=== PATIENT | male | born 1975 | race Hispanic/Latino ===

== ENCOUNTER 2024-04-22 20:35 | Emergency (ER) | payer MEDICARE, OTHER, SELFPAY ==
[2024-04-22] VITALS (10 sets, daily range): BP systolic 102–127; BP diastolic 62–95
--- NOTE | 2024-04-22 21:09 | ED.GENMED ---
History of Present Illness
<Hortencia Faye NP - Last Filed: 04/23/24 00:58>
General
Chief Complaint: Heart Rate Problem
Source: patient
Exam Limitations: none
Time Seen by Provider: 04/22/24 21:02
Nursing documentation reviewed up to this point in time: agreed with
History of Present Illness
History of Present Illness:
Patient to ED with complaint of rapid heart beat. States he noticed this sudden onset at around 2:30PM today. He has been monitoring it with his apple watch. Brought self to ED for eval. Denies fever/chills, recent illness. Denies any SOB,
cp/pressure. No dizziness
Past History
<Hortencia Faye NP - Last Filed: 04/23/24 00:58>
Past History
ED Past Medical History: HTN and Psychiatric (anxiety)
Social History
Tobacco: Vaping
Alcohol: Occasional
Drug: None
Review of Systems
<Hortencia Faye NP - Last Filed: 04/23/24 00:58>
Review of Systems
Allergies reviewed?: Yes
All Other Systems: ROS reviewed and negative except as documented in HPI and ROS
Constitutional: Reports no symptoms
EENT: Reports no symptoms
Respiratory: Reports no symptoms
Cardiac: Reports other (Rapid heart beat.)
ABD/GI: Reports no symptoms
: Reports no symptoms
Musculoskeletal: Reports no symptoms
Skin: Reports no symptoms
Neurological: Reports no symptoms
Psychiatric: Reports no symptoms
Phy Exam
<Hortencia Faye NP - Last Filed: 04/23/24 00:58>
General Physical Exam
General Presentation: well appearing and no apparent distress
General age: appears stated age
General Skin: warm and dry
General Habitus: normal
General Mental: alert
Cardiovascular Exam
Cardiovascular Exam: no edema and irregularly irregular
Pulmonary Exam
Pulmonary Exam: lungs clear and no respiratory distress
Musculoskeletal Exam
Musculoskeletal Exam: full ROM and neuro vasc intact
Skin Exam
Skin Exam: normal color, warm/dry and no rash
Psychiatric Exam
Psychiatric Exam: normal mood/affect
Scores
<Hortencia Faye NP - Last Filed: 04/23/24 00:58>
[id number] Score for Afib Stroke Risk
Age in Years (65=0, 65-74=1, >/=75=2): <65
Sex (Female=+1): Male
Congestive Heart Failure History (Yes=+1): No
Hypertension History (Yes=+1): Yes
Stroke/TIA/Thromboembolism History (Yes=+2): No
Vascular Disease History (Yes=+1): No
Diabetes Mellitus (Yes=+1): No
Score: 1
Anticoagulation Recommendations: Consider anticoagulation (as validated in nonvalvular fib)
<Luis Miles MD - Last Filed: 04/23/24 00:30>
[id number] Score for Afib Stroke Risk
Score: 1
Anticoagulation Recommendations: Consider anticoagulation (as validated in nonvalvular fib)
Course
<Hortencia Faye NP - Last Filed: 04/23/24 00:58>
Orders/Labs/Results
Orders:
Orders
04/22/24 20:36
Electrocardiogram (*1) Urgent
Reason for Study: Chest Pain
EKG- Treatment ONCE
04/22/24 21:10
Diltiazem HCl [Cardizem] 20 mg IV NOW STA
04/22/24 21:12
0.9% Sodium Chloride 1000 ml [Nss] 1,000 ml IV BOLUS
04/22/24 21:15
Complete Blood Count/With Diff Urgent
Comprehensive Metabolic Panel Urgent
D-Dimer Urgent
Magnesium Urgent
TSH Urgent
Troponin I Urgent
Diltiazem 125 mg/125 ml Nss [Cardizem] 125 mg in 125 ml IV PER PROTOCOL
Currently infusing. Continue current dose and titrate:: Yes
Titrate to keep:: Heart rate 80-100 bpm
Titrate by mg/hr:: 5 mg/hr
Frequency of titrations (minutes):: 15
Maximum dose in mg/hr:: 15
04/22/24 22:31
Metoprolol Xl [Toprol Xl] 25 mg PO NOW STA
04/22/24 23:51
Apixaban [Eliquis] 10 mg PO NOW STA
04/22/24 23:54
Apixaban [Eliquis] 5 mg PO NOW STA
Abnormal Lab Results
04/22/24
21:15
Absolute Lymphs (auto) 3.8 H 10^3/uL
(1.2-3.4)
Absolute Monos (auto) 0.8 H 10^3/uL
(0.1-0.6)
04/22/24 21:15
04/22/24 21:15
Vital Signs
Initial and Last Documented VS:
Initial Vital Signs
Temp Pulse Resp BP Pulse Ox
98.2 F 132 18 127/95 99
04/22/24 20:37 04/22/24 20:37 04/22/24 20:37 04/22/24 20:37 04/22/24 20:37
Last Documented Vital Signs
Temp Pulse Resp BP Pulse Ox
98.2 F 76 13 102/86 94
04/22/24 20:37 04/23/24 00:00 04/23/24 00:00 04/23/24 00:00 04/23/24 00:00
<Luis Miles MD - Last Filed: 04/23/24 00:30>
Orders/Labs/Results
Orders:
Orders
04/22/24 20:36
Electrocardiogram (*1) Urgent
Reason for Study: Chest Pain
EKG- Treatment ONCE
04/22/24 21:10
Diltiazem HCl [Cardizem] 20 mg IV NOW STA
04/22/24 21:12
0.9% Sodium Chloride 1000 ml [Nss] 1,000 ml IV BOLUS
04/22/24 21:15
Complete Blood Count/With Diff Urgent
Comprehensive Metabolic Panel Urgent
D-Dimer Urgent
Magnesium Urgent
TSH Urgent
Troponin I Urgent
Diltiazem 125 mg/125 ml Nss [Cardizem] 125 mg in 125 ml IV PER PROTOCOL
Currently infusing. Continue current dose and titrate:: Yes
Titrate to keep:: Heart rate 80-100 bpm
Titrate by mg/hr:: 5 mg/hr
Frequency of titrations (minutes):: 15
Maximum dose in mg/hr:: 15
04/22/24 22:31
Metoprolol Xl [Toprol Xl] 25 mg PO NOW STA
04/22/24 23:51
Apixaban [Eliquis] 10 mg PO NOW STA
04/22/24 23:54
Apixaban [Eliquis] 5 mg PO NOW STA
Abnormal Lab Results
04/22/24
21:15
Absolute Lymphs (auto) 3.8 H 10^3/uL
(1.2-3.4)
Absolute Monos (auto) 0.8 H 10^3/uL
(0.1-0.6)
04/22/24 21:15
04/22/24 21:15
Vital Signs
Initial and Last Documented VS:
Initial Vital Signs
Temp Pulse Resp BP Pulse Ox
98.2 F 132 18 127/95 99
04/22/24 20:37 04/22/24 20:37 04/22/24 20:37 04/22/24 20:37 04/22/24 20:37
Last Documented Vital Signs
Temp Pulse Resp BP Pulse Ox
98.2 F 76 13 102/86 94
04/22/24 20:37 04/23/24 00:00 04/23/24 00:00 04/23/24 00:00 04/23/24 00:00
<Hortencia Faye NP - Last Filed: 04/23/24 00:58>
*Critical Care Note
Total Time (30-74mins, 75-104mins- exclusive of procedures): Not Applicable
<Hortencia Faye NP - Last Filed: 04/23/24 00:58>
Update Note
Update Note:
Patient to ED wtih new onset Afib. Rate 140's on arrival to ED. Cardizem bolus and drip administered in ED. Rate now controlled (80's) however he remains in Afib. Discussed case wth Dr. Miles who also evaluated this patient. Dr. Waldrop consulted
via tiger text. Will place on Toprol XL 25mg daily, Eliquis 5mg bid, stop Lisinopril. He will follow up with cardiology next week. Office will contact him on Wednesday to schedule appt.
ED Attending Note
<Hortencia Faye NP - Last Filed: 04/23/24 00:58>
-
Portions of this chart may have been created with voice recognition software.� Occasional wrong word or��sound alike� substitutions may have occurred due to the inherent limitations of voice recognition software.
<Luis Miles MD - Last Filed: 04/23/24 00:30>
ED Attending Note
Patient seen and examined by attending physician: Yes
ED Attending Note:
Patient with history of hypertension on HCTZ and lisinopril, presents to ED secondary to sudden onset of palpitations this afternoon after eating 'something sweet'. When he checked his pulse on his rest, felt to be fast and irregular. On his Apple
Watch, his heart rate was noted to be greater than 150 bpm. However, patient denies chest pain, dizziness, shortness of breath, or nausea sensation. Denies previous history of similar symptoms. Denies recent illness. Denies recent change in
medications or diet. Denies recent travel or surgery. Denies leg pain or swelling. Denies back pain. Denies drinking alcohol. There is no family history of significant heart disease.
Physical Exam
General: no apparent distress, not acutely ill. afebrile
Head: nc/at. eomi
Neck: supple. no meningeal signs.
Heart: irregularly irregular, tachycardic, no murmur. equal radial pulses.
Lungs: no acute respiratory distress. clear bilaterally
Abdomen: normal bowel sounds. not tender.
Neuro: alert and oriented. no focal neurological deficits
Skin: no rash
Psychiatric: well kept. interactive and cooperative
Extremities: no edema. no calf tenderness.
History and exam consistent with likely new onset atrial fibrillation.
Heart rate improved significantly after treatment with IV fluids, Cardizem bolus and infusion.
Discussed with on-call cardiology, . Decision made to discharge patient home with following recommendation: Eliquis, Toprol XL. As Toprol will be added to his current medications, patient will be advised to discontinue lisinopril, to
prevent significant hypotension. Cardiology office will contact patient at home for urgent outpatient follow-up next week. Patient otherwise is hemodynamically stable and appears comfortable, at time of discharge.
Critical care statement: A total of 40 minutes of critical care time was provided for this patient. This includes management of unstable vital signs, evaluation of the patient at bedside, reviewing the patient's pertinent medical records, discussion
with consultants, review of old EKGs and review of pertinent medical records. This time with separate from time utilized to perform the aforementioned documented procedures
Discharge Plan
Departure
Patient Disposition: Home (Routine Discharge)
Date of Disposition: 04/22/24
Time of Disposition: 23:52
Patient with high blood pressure during this ER visit?: No
Condition: Good
Covid-19: Not Applicable
Discharge Problem:
New onset a-fib
Instructions: Atrial Fibrillation (DC), Apixaban
Prescriptions:
New
Eliquis 5 mg tablet
5 mg PO BID Qty: 60 0RF
metoprolol succinate [Toprol XL] 25 mg tablet extended release 24 hr
25 mg PO DAILY Qty: 30 0RF
Referrals:
Bryan Waldrop MD [Active] - (Cardiology office will contact you on Wednesday to schedule your appointment.)
Roz Herrera PA [Family Provider] -
Activity Restrictions/Additional Instructions:
Stop your Lisinopril. You will receive a call from the cardiology office on Wednesday to schedule your appointment. If you do not receive a call by Wednesday, call the cardiology office. Return to the emergency department immediately for any
CP/pressure, SOB, or for any further concerns.
Interventions
Interventions:
*Risk Screen - Suicide Last Done: 04/22/24 20:37
*General Assessment Last Done: 04/22/24 20:37
*Neglect/Abuse Screening Last Done: 04/22/24 20:37
ED- Fall Risk Assessment Last Done: 04/23/24 00:14
*ED COVID-19 Vaccine History Last Done: 04/23/24 00:14
*Nursing Disposition Last Done: 04/23/24 00:14
ED- Cardiac Assessment Last Done: 04/22/24 21:04
ED- Pulmonary Assessment Last Done: 04/22/24 21:34
Discharge Date and Time
Discharge Date/Time: 04/23/24 00:14
Print Language: CYPRIOT
--- NOTE | 2024-04-22 21:09 | ED.GENMED ---
History of Present Illness
General
Chief Complaint: Heart Rate Problem
Source: patient
Exam Limitations: none
Time Seen by Provider: 04/22/24 21:02
Nursing documentation reviewed up to this point in time: agreed with
History of Present Illness
History of Present Illness:
Patient with history of hypertension on HCTZ and lisinopril, presents to ED
Course
Orders/Labs/Results
Orders:
Orders
04/22/24 20:36
Electrocardiogram (*1) Urgent
Reason for Study: Chest Pain
EKG- Treatment ONCE
04/22/24 21:10
Diltiazem HCl [Cardizem] 20 mg IV NOW STA
04/22/24 21:12
0.9% Sodium Chloride 1000 ml [Nss] 1,000 ml IV BOLUS
04/22/24 21:15
Complete Blood Count/With Diff Urgent
Comprehensive Metabolic Panel Urgent
D-Dimer Urgent
Magnesium Urgent
TSH Urgent
Troponin I Urgent
Diltiazem 125 mg/125 ml Nss [Cardizem] 125 mg in 125 ml IV PER PROTOCOL
Currently infusing. Continue current dose and titrate:: Yes
Titrate to keep:: Heart rate 80-100 bpm
Titrate by mg/hr:: 5 mg/hr
Frequency of titrations (minutes):: 15
Maximum dose in mg/hr:: 15
04/22/24 22:31
Metoprolol Xl [Toprol Xl] 25 mg PO NOW STA
04/22/24 23:51
Apixaban [Eliquis] 10 mg PO NOW STA
Abnormal Lab Results
04/22/24
21:15
Absolute Lymphs (auto) 3.8 H 10^3/uL
(1.2-3.4)
Absolute Monos (auto) 0.8 H 10^3/uL
(0.1-0.6)
04/22/24 21:15
04/22/24 21:15
Vital Signs
Initial and Last Documented VS:
Initial Vital Signs
Temp Pulse Resp BP Pulse Ox
98.2 F 132 18 127/95 99
04/22/24 20:37 04/22/24 20:37 04/22/24 20:37 04/22/24 20:37 04/22/24 20:37
Last Documented Vital Signs
Temp Pulse Resp BP Pulse Ox
98.2 F 83 15 114/75 96
04/22/24 20:37 04/22/24 23:45 04/22/24 23:45 04/22/24 23:45 04/22/24 23:45
ED Attending Note
-
Portions of this chart may have been created with voice recognition software.� Occasional wrong word or��sound alike� substitutions may have occurred due to the inherent limitations of voice recognition software.
Discharge Plan
Departure
Patient Disposition: Home (Routine Discharge)
Date of Disposition: 04/22/24
Time of Disposition: 23:52
Patient with high blood pressure during this ER visit?: No
Condition: Good
Covid-19: Not Applicable
Discharge Problem:
New onset a-fib
Instructions: Atrial Fibrillation (DC)
Referrals:
Roz Herrera PA [Family Provider] -
Interventions
Interventions:
*Risk Screen - Suicide Last Done: 04/22/24 20:37
*General Assessment Last Done: 04/22/24 20:37
*Neglect/Abuse Screening Last Done: 04/22/24 20:37
ED- Cardiac Assessment Last Done: 04/22/24 21:04
ED- Pulmonary Assessment Last Done: 04/22/24 21:34
Discharge Date and Time
Print Language: IRANIAN
[2024-04-22 21:26] LABS: % Basophils 0.8 % (0-2); % Eosinophils 2.4 % (0-6); % Immature Granulocytes 0.3 % (0-0.5); % Lymphocytes 39.9 % (20.5-51.1); % Monocytes 8.7 % (1.7-9.3); % Neutrophils 47.9 % (42.2-75.2); Absolute Basophils 0.1 10^3/uL (0-0.2); Absolute Eosinophils 0.2 10^3/uL (0-0.7); Absolute Lymphocytes 3.8 10^3/uL (1.2-3.4); Absolute Monocytes 0.8 10^3/uL (0.1-0.6); Absolute Neutrophils 4.6 10^3/uL (1.4-6.5); Mean Corp Hgb Conc. 36.6 g/dL (33.0-37.0); Mean Corpuscular Hgb 29.6 pg (27.0-31.0); Mean Corpuscular Volume 80.9 fL (80.0-94.0); Nucleated Red Blood Cells % 0 % (-); Platelet Count 204 10^3/uL (130-400); Red Blood Cell Count 5.07 10^6/uL (4.70-6.10); Red Cell Dist. Width 13.3 % (11.5-14.5); White Blood Cell Count 9.5 10^3/uL (4.8-10.8)
[2024-04-22] MEDS: NSS 1000 IV (21:26)
[2024-04-22] MEDS: CARDIZEM 20 MG IV (21:52)
[2024-04-22 21:53] LABS: Troponin I < 0.012 ng/ml
[2024-04-22] MEDS: CARDIZEM 125 IV (21:57)
[2024-04-22 22:00] LABS: ALT (SGPT) 22 U/L (0-50); AST (SGOT) 28 U/L (17-59); Albumin 4.3 g/dl (3.5-5.0); Alkaline Phosphatase 80 U/L (38-126); Blood Urea Nitrogen 20 mg/dl (9-20); Calcium 9.4 mg/dl (8.4-10.2); Carbon Dioxide 27 mmol/L (22-30); Chloride 101 mmol/L (98-107); Glucose 92 mg/dl (70-99); Magnesium 1.8 mg/dl (1.6-2.3); Potassium 3.9 mmol/L (3.5-5.1); Sodium 138 mmol/L (135-145); Total Bilirubin 0.8 mg/dl (0.2-1.3); Total Protein 7.2 g/dl (6.3-8.2); eGFR > 60.00
[2024-04-22] MEDS: TOPROL XL 25 MG PO (22:38)
[2024-04-23] VITALS: BP 102/86
[2024-04-23] MEDS: ELIQUIS 5 MG PO
== END 2024-04-23 00:14 | disposition home or self-care (01) ==
LOC: EMR 20:35
PROVIDERS: Emergency Medicine; Nurse Practitioner; EMERGENCY PHYSICIAN Emergency Medicine; FAMILY PHYSICIAN Family Medicine
DX: I48.91 Unspecified atrial fibrillation (principal); R00.0 Tachycardia, unspecified; R07.9 Chest pain, unspecified; I10 Essential (primary) hypertension; F17.290 Nicotine dependence, other tobacco product, uncomplicated
CPT/HCPCS: 99291; 96365; 80053; 83735; 84443; 84484; 85025; 85379; 93005

== ENCOUNTER 2024-05-18 22:44 | Emergency (ER) | payer MEDICARE, SELFPAY ==
[2024-05-18 22:47] VITALS: BP 163/97
--- NOTE | 2024-05-18 23:30 | ED.GENMED ---
History of Present Illness
<LAUREN Mcneill - Last Filed: 05/19/24 01:59>
General
Chief Complaint: Heart Rate Problem
Source: patient
Time Seen by Provider: 05/18/24 23:13
History of Present Illness
History of Present Illness:
Pt is a 48 y/o male with PMHx of newly diagnosed a-fib, HTN, and anxiety presenting with lightheadedness and racing heart that started 1.5 hours ago. He states he was driving and started experiencing lightheadedness and he felt his heart rate and it
was racing. He states he checked his apple watch and his HR was 143. He states he was also experiencing some nausea and shortness of breath. He states he also began experiencing a headache on the crown of his head and in his temples. He states it
was a 10/10 and he took Tylenol which slightly alleviated his symptoms. He states he also noticed left hand paraesthesias that lasted around 5 minutes and resolved. He states he drove home and checked his BP and it was 160/130 so he came to the ED.
He states since arriving in the ED he feels better besides the headache which he now states is an 8/10. He denies any vision changes, LOC, confusion, chest pain, vomiting. He states he was diagnosed with a-fib 1 month ago.
Past History
<LAUREN Mcneill - Last Filed: 05/19/24 01:59>
Past History
ED Past Medical History: HTN and Psychiatric (anxiety)
Social History
Tobacco: Vaping
Alcohol: Occasional
Drug: None
Phy Exam
<LAUREN Mcneill - Last Filed: 05/19/24 01:59>
Physical Exam
Physical Exam:
GENERAL: Alert , comfortable, in no apparent distress
EYE: pupils equal and reactive
Throat: Airway intact, no exudates
NECK: Supple, no significant adenopathy.
CARDIAC: Regular rate and rhythm .
LUNGS: Clear breath sounds bilaterally, no acute respiratory distress, no wheezes/rales/rhonchi
ABDOMEN: Soft, nondistended, nontender, no cvat
NEUROLOGICAL: Alert and oriented x3, following commands, no focal neuro deficits. Strength and sensation intact in all upper and lower extremities.
SKIN: Warm and dry, skin intact.
MUSCULOSKELETAL: No edema, well perfused.
PSYCH: Normal and appropriate interaction.
Course
<Chalino Byers [facility] - Last Filed: 05/19/24 01:59>
Orders/Labs/Results
Orders:
Orders
05/18/24 22:48
EKG [Electrocardiogram (*1)] Urgent
Reason for Study: Atrial Fibrillation
EKG- Treatment ONCE
05/18/24 23:52
Complete Blood Count/With Diff Urgent
Comprehensive Metabolic Panel Urgent
Magnesium Urgent
PTT Urgent
Prothrombin Time Urgent
TSH Urgent
Troponin I Urgent
05/18/24 23:53
Electrocardiogram (*1) Stat
Reason for Study: Other
Other Reason for Exam: chest pain
EKG- Treatment ONCE
05/19/24 00:04
Orthostatic Vital Signs As Directed
Orthostatic VS Frequency: Now
05/19/24 00:05
Erythrocyte Sed Rate Urgent
Comment: ADDED
05/19/24 00:14
CT Head & Neck Angio W/wo IV Urgent
Comment:
Reason For Exam: worst HOBBS, left arm paresthesia
05/19/24 00:15
Add On- LAB Urgent
Tests Added?: sed rate
05/19/24 01:19
Diphenhydramine [Benadryl] 25 mg IV NOW STA
Metoclopramide [Reglan] 10 mg IV NOW STA
Abnormal Lab Results
05/19/24
00:05
Hct 38.7 L %
(39.0-52.0)
Neutrophils % 39.8 L %
(42.2-75.2)
PT 14.8 H Sec
(11.4-14.6)
APTT 37.4 H Sec
(23.4-35.0)
05/19/24 00:05
05/19/24 00:05
Vital Signs
Initial and Last Documented VS:
Initial Vital Signs
Temp Pulse Resp BP Pulse Ox
98.5 F 69 19 163/97 97
05/18/24 22:47 05/18/24 22:47 05/18/24 22:47 05/18/24 22:47 05/18/24 22:47
Last Documented Vital Signs
Temp Pulse Resp BP Pulse Ox
98.5 F 63 13 131/91 97
05/18/24 22:47 05/19/24 00:30 05/19/24 00:30 05/19/24 00:00 05/19/24 00:30
<Lauro Pittman, DO - Last Filed: 05/19/24 01:56>
Orders/Labs/Results
Orders:
Orders
05/18/24 22:48
EKG [Electrocardiogram (*1)] Urgent
Reason for Study: Atrial Fibrillation
EKG- Treatment ONCE
05/18/24 23:52
Complete Blood Count/With Diff Urgent
Comprehensive Metabolic Panel Urgent
Magnesium Urgent
PTT Urgent
Prothrombin Time Urgent
TSH Urgent
Troponin I Urgent
05/18/24 23:53
Electrocardiogram (*1) Stat
Reason for Study: Other
Other Reason for Exam: chest pain
EKG- Treatment ONCE
05/19/24 00:04
Orthostatic Vital Signs As Directed
Orthostatic VS Frequency: Now
05/19/24 00:05
Erythrocyte Sed Rate Urgent
Comment: ADDED
05/19/24 00:14
CT Head & Neck Angio W/wo IV Urgent
Comment:
Reason For Exam: worst HOBBS, left arm paresthesia
05/19/24 00:15
Add On- LAB Urgent
Tests Added?: sed rate
05/19/24 01:19
Diphenhydramine [Benadryl] 25 mg IV NOW STA
Metoclopramide [Reglan] 10 mg IV NOW STA
Abnormal Lab Results
05/19/24
00:05
Hct 38.7 L %
(39.0-52.0)
Neutrophils % 39.8 L %
(42.2-75.2)
PT 14.8 H Sec
(11.4-14.6)
APTT 37.4 H Sec
(23.4-35.0)
05/19/24 00:05
05/19/24 00:05
Vital Signs
Initial and Last Documented VS:
Initial Vital Signs
Temp Pulse Resp BP Pulse Ox
98.5 F 69 19 163/97 97
05/18/24 22:47 05/18/24 22:47 05/18/24 22:47 05/18/24 22:47 05/18/24 22:47
Last Documented Vital Signs
Temp Pulse Resp BP Pulse Ox
98.5 F 63 13 131/91 97
05/18/24 22:47 05/19/24 00:30 05/19/24 00:30 05/19/24 00:00 05/19/24 00:30
<LAUREN Mcneill - Last Filed: 05/19/24 01:59>
MDM/Problems Addressed
Differential Diagnosis Includes:
Differential diagnosis includes but is not limited to paroxysmal atrial fibrillation, SAH, anxiety, hyperthyroid, electrolyte abnormality
<LAUREN Mcneill - Last Filed: 05/19/24 01:59>
*Radiology
Radiology exam reviewed: radiology read reviewed
*Pulse Oximetry
Patient hypoxic: no
*EKG
Interpreted by ED Provider?: Yes
Interpretation: abnormal
Comparison EKG: changes noted (Sinus rhythm has replaced atrial fibrillation)
Heart Rate: 63
Rate: normal
Rhythm: sinus
[place]: normal axis
Interval: first degree heart block
QRS Pattern: normal QRS
Ischemia: no ischemia
*Interdisciplinary Professor Interpretation
Rate: Interdisciplinary Professor- N/A
*Critical Care Note
Total Time (30-74mins, 75-104mins- exclusive of procedures): Not Applicable
<LAUREN Mcneill - Last Filed: 05/19/24 01:59>
Update Note
Update Note:
CTA of head and neck showed no bleeds or occlusions making SAH less likely. Lab work shows no gross electrolyte abnormalities. Patient's headache is improved and vitals are stable. Patient's symptoms are consistent with paroxysmal a-fib. Patient to
follow up with cardiology outpatient.
ED Attending Note
<LAUREN Mcneill - Last Filed: 05/19/24 01:59>
-
Portions of this chart may have been created with voice recognition software.� Occasional wrong word or��sound alike� substitutions may have occurred due to the inherent limitations of voice recognition software.
<Lauro Pittman DO - Last Filed: 05/19/24 01:56>
ED Attending Note
Patient seen and examined by attending physician: Yes
I performed the substantive portion of visit, reviewed & personally made and approve the management plan that is documented in note by myself or ANDREW.: Yes
ED Attending Note:
Pleasant 48-year-old male presents with palpitations and headache. He states that he felt that his heart was racing approximately one and half hours prior to arrival. He did report having a very severe headache. He was driving at the time and he
felt lightheaded. He looked at his watch and determined that his heart rate was over 140. He thought he was in atrial fibrillation. He was recently diagnosed with atrial fibrillation and put on Eliquis. He states that he has not missed a dose.
Patient also reported left hand paresthesias which lasted approximately 5 minutes. Upon arrival at his home his blood pressure was elevated so he came into the emergency department for evaluation. Patient reports that his headache is improving.
Patient denies chest pain or shortness of breath. Patient was seen in conjunction with the PA student. I have reviewed and agree with the history and treatment plan presented. On my independent physical exam, patient is awake, alert, and oriented
x3, minimal acute distress resting comfortably on the bed. Heart is regular rate and rhythm. Lungs are clear to auscultation bilaterally no wheezes rales or rhonchi present. Pupils equal round reactive to light. Moves all 4 extremities. No neck
pain reported or nuchal rigidity observed. No obvious meningeal signs.
Given the patient has a severe headache, to get CTA of the head.
CT head
CT angiogram head and neck
IMPRESSION:
Head:
No acute intracranial hemorrhage, mass or mass-effect.
Skull intact. Bilateral maxillary antrectomy and partial ethmoidectomy. Scattered ethmoid and maxillary sinus mucosal thickening.
Angiogram head:
No major arterial vascular occlusion.
No focal aneurysm.
Venous sinuses are patent.
Angiogram neck:
No major arterial vascular occlusion.
No hemodynamically significant stenosis, dissection or aneurysm.
EKG shows sinus rhythm rate of 63 with prolonged HI interval at 240 ms consistent with first-degree AV block. No evidence of acute ischemia present.
Repeat EKG shows sinus bradycardia rate of 53 with increased HI interval of 260 ms. No other significant changes found from previous
05/19/2024 0154 AM: Patient feeling much better. He refused medications ordered. He will take Tylenol when he gets home. He wishes to be discharged. Discussed CT scan findings with the patient. I did discuss return to ER instructions. Patient
being discharged in improved condition.
Discharge Plan
Departure
Prescriptions:
No Action
Eliquis 5 mg tablet
5 mg PO BID Qty: 60 0RF
metoprolol succinate [Toprol XL] 25 mg tablet extended release 24 hr
25 mg PO DAILY Qty: 30 0RF
Referrals:
Roz Herrera PA [Family Provider] -
Interventions
Interventions:
*General Assessment Last Done: 05/19/24 00:38
*Neglect/Abuse Screening Last Done: 05/19/24 00:38
*ED COVID-19 Vaccine History Last Done: 05/18/24 22:46
ED- Cardiac Assessment Last Done: 05/19/24 00:38
ED- Pulmonary Assessment Last Done: 05/19/24 00:38
Discharge Date and Time
Print Language: JAPANESE
[2024-05-19] VITALS: BP 131/91
[2024-05-19 00:07] VITALS: BMI 29.5
[2024-05-19 00:26] LABS: APTT 37.4 Sec (23.4-35.0); INR 1.16; PT 14.8 Sec (11.4-14.6)
[2024-05-19 00:29] LABS: ALT (SGPT) 21 U/L (0-50); AST (SGOT) 25 U/L (17-59); Albumin 4.1 g/dl (3.5-5.0); Alkaline Phosphatase 65 U/L (38-126); Blood Urea Nitrogen 15 mg/dl (9-20); Calcium 9.6 mg/dl (8.4-10.2); Carbon Dioxide 27 mmol/L (22-30); Chloride 103 mmol/L (98-107); Estimated Creatinine Clearance 83 ml/min; Glucose 99 mg/dl (70-99); Magnesium 1.8 mg/dl (1.6-2.3); Potassium 4.1 mmol/L (3.5-5.1); Sodium 137 mmol/L (135-145); Total Bilirubin 0.6 mg/dl (0.2-1.3); Total Protein 6.9 g/dl (6.3-8.2); eGFR > 60.00
[2024-05-19 00:34] LABS: % Basophils 1.1 % (0-2); % Eosinophils 3.5 % (0-6); % Immature Granulocytes 0.4 % (0-0.5); % Lymphocytes 46.8 % (20.5-51.1); % Monocytes 8.4 % (1.7-9.3); % Neutrophils 39.8 % (42.2-75.2); Absolute Basophils 0.1 10^3/uL (0-0.2); Absolute Eosinophils 0.2 10^3/uL (0-0.7); Absolute Lymphocytes 2.6 10^3/uL (1.2-3.4); Absolute Monocytes 0.5 10^3/uL (0.1-0.6); Absolute Neutrophils 2.2 10^3/uL (1.4-6.5); Hematocrit 38.7 % (39.0-52.0); Mean Corp Hgb Conc. 36.2 g/dL (33.0-37.0); Mean Corpuscular Hgb 29.4 pg (27.0-31.0); Mean Corpuscular Volume 81.3 fL (80.0-94.0); Mean Platelet Volume 9.6 fL (7.4-10.4); Nucleated Red Blood Cells % 0 % (-); Platelet Count 194 10^3/uL (130-400); Red Blood Cell Count 4.76 10^6/uL (4.70-6.10); Red Cell Dist. Width 12.4 % (11.5-14.5); White Blood Cell Count 5.5 10^3/uL (4.8-10.8)
[2024-05-19 00:39] LABS: Erythrocyte Sed Rate 7 mm/hour (0-20)
[2024-05-19 00:41] LABS: Troponin I < 0.012 ng/ml
[2024-05-19 00:59] LABS: TSH 1.08 uIU/ml (0.47-4.68)
[2024-05-19 01:07] VITALS: BP 125/83
[2024-05-19 01:08] VITALS: BP 120/78
[2024-05-19 01:10] VITALS: BP 128/84
[2024-05-19 01:12] VITALS: BP 120/78; BP 125/83; BP 128/84; PULSE 52; PULSE 60
[2024-05-19 02:00] VITALS: BP 114/89
== END 2024-05-19 02:10 | disposition home or self-care (01) ==
LOC: EMR 22:44
PROVIDERS: EMERGENCY PHYSICIAN Student in an Organized Health Care Education/Training Program; FAMILY PHYSICIAN Family Medicine
DX: R00.2 Palpitations (principal); R42 Dizziness and giddiness; R51.9 Headache, unspecified; R06.02 Shortness of breath; R20.2 Paresthesia of skin; R11.0 Nausea; I48.91 Unspecified atrial fibrillation; Z79.01 Long term (current) use of anticoagulants; I10 Essential (primary) hypertension; F41.9 Anxiety disorder, unspecified
CPT/HCPCS: 99285; 70496; 70498; 80053; 83735; 84443; 84484; 85025; 85610; 85652; 85730; 93005; Q9967

== ENCOUNTER → 2024-05-25 15:39 | Outpatient (REF) | payer MEDICARE, SELFPAY | LOC: HWRCS 15:39 | PROVIDERS: ATTENDING PHYSICIAN Internal Medicine Cardiovascular Disease; FAMILY PHYSICIAN Family Medicine | DX: I48.0 Paroxysmal atrial fibrillation (principal) | CPT/HCPCS: 93306 ==

== ENCOUNTER → 2024-06-20 11:03 | Outpatient (REF) | payer MEDICARE, SELFPAY | LOC: HWRAD 11:03 | PROVIDERS: ATTENDING PHYSICIAN Internal Medicine Cardiovascular Disease; FAMILY PHYSICIAN Family Medicine | DX: E78.5 Hyperlipidemia, unspecified (principal) | CPT/HCPCS: 75571 ==

== ENCOUNTER → 2024-06-30 11:18 | Outpatient (REF) | payer MEDICARE, SELFPAY | LOC: HWRAD 11:18 | PROVIDERS: ATTENDING PHYSICIAN Family Medicine | DX: R19.00 Intra-abdominal and pelvic swelling, mass and lump, unspecified site (principal) | CPT/HCPCS: 74177; Q9967 ==

== ENCOUNTER 2024-07-01 17:29 | Emergency (ER) | payer MEDICARE, SELFPAY ==
[2024-07-01 17:31] VITALS: BP 136/94
[2024-07-01 18:00] LABS: % Basophils 0.7 % (0-2); % Eosinophils 2.8 % (0-6); % Immature Granulocytes 0.3 % (0-0.5); % Lymphocytes 25.3 % (20.5-51.1); % Monocytes 8.2 % (1.7-9.3); % Neutrophils 62.7 % (42.2-75.2); Absolute Basophils 0.1 10^3/uL (0-0.2); Absolute Eosinophils 0.3 10^3/uL (0-0.7); Absolute Lymphocytes 2.7 10^3/uL (1.2-3.4); Absolute Monocytes 0.9 10^3/uL (0.1-0.6); Absolute Neutrophils 6.6 10^3/uL (1.4-6.5); Hemoglobin 15.1 g/dL (13.0-18.0); Mean Corp Hgb Conc. 36.8 g/dL (33.0-37.0); Mean Corpuscular Hgb 28.9 pg (27.0-31.0); Mean Corpuscular Volume 78.5 fL (80.0-94.0); Mean Platelet Volume 9.8 fL (7.4-10.4); Nucleated Red Blood Cells % 0 % (-); Platelet Count 185 10^3/uL (130-400); Red Blood Cell Count 5.22 10^6/uL (4.70-6.10); Red Cell Dist. Width 12.2 % (11.5-14.5); White Blood Cell Count 10.5 10^3/uL (4.8-10.8)
[2024-07-01 18:15] LABS: ALT (SGPT) 36 U/L (0-50); AST (SGOT) 30 U/L (17-59); Albumin 4.5 g/dl (3.5-5.0); Alkaline Phosphatase 76 U/L (38-126); Blood Urea Nitrogen 15 mg/dl (9-20); Calcium 9.5 mg/dl (8.4-10.2); Carbon Dioxide 26 mmol/L (22-30); Chloride 102 mmol/L (98-107); Glucose 115 mg/dl (70-99); Potassium 4.4 mmol/L (3.5-5.1); Sodium 141 mmol/L (135-145); Total Bilirubin 0.6 mg/dl (0.2-1.3); Total Protein 7.4 g/dl (6.3-8.2); eGFR > 60.00
[2024-07-01 18:32] VITALS: BP 115/89; BMI 29.0
[2024-07-01 18:35] LABS: Troponin I < 0.012 ng/ml
--- NOTE | 2024-07-01 18:52 | ED.GENMED ---
History of Present Illness
General
Chief Complaint: Heart Rate Problem
Time Seen by Provider: 07/01/24 18:36
History of Present Illness
History of Present Illness:
49-year-old male presents to the emergency department for evaluation of acute onset of chest pain associated with palpitations beginning this afternoon. He has a history of paroxysmal A-fib and he is on Eliquis, states that his Apple Watch notified
him he was in A-fib. Upon arrival to emergency department symptoms resolved. Currently asymptomatic and denies complaints
Past History
Past History
ED Past Medical History: HTN and Psychiatric (anxiety)
Social History
Tobacco: Vaping
Alcohol: Occasional
Drug: None
Review of Systems
Review of Systems
Allergies reviewed?: Yes
All Other Systems: ROS reviewed and negative except as documented in HPI and ROS
Phy Exam
Physical Exam
Physical Exam:
GEN: Well appearing, NAD, WDWN
HEENT: Oral mucosa moist, no scleral icterus
Cardiac: Regular rate and rhythm, no murmurs
Lung: No respiratory distress, no tachypnea
MSK: No gross deformity or injuries
Skin: Good color, no pallor or jaundice, no rashes
Neuro: AO x3, moves all extremities freely
Psych: Calm, cooperative
Course
Orders/Labs/Results
Orders:
Orders
07/01/24 17:30
EKG [Electrocardiogram (*1)] Urgent
Reason for Study: Atrial Fibrillation
EKG- Treatment ONCE
07/01/24 17:31
Electrocardiogram (*1) Urgent
Reason for Study: Atrial Fibrillation
EKG- Treatment ONCE
07/01/24 17:41
Complete Blood Count/With Diff Urgent
Comprehensive Metabolic Panel Urgent
Troponin I Urgent
Abnormal Lab Results
07/01/24
17:41
MCV 78.5 L fL
(80.0-94.0)
Absolute Neuts (auto) 6.6 H 10^3/uL
(1.4-6.5)
Absolute Monos (auto) 0.9 H 10^3/uL
(0.1-0.6)
Glucose 115 H mg/dl
(70-99)
07/01/24 17:41
07/01/24 17:41
Vital Signs
Initial and Last Documented VS:
Initial Vital Signs
Temp Pulse Resp BP Pulse Ox
98.2 F 95 16 136/94 98
07/01/24 17:31 07/01/24 17:31 07/01/24 17:31 07/01/24 17:31 07/01/24 17:31
Last Documented Vital Signs
Temp Pulse Resp BP Pulse Ox
98.2 F 82 15 115/89 97
07/01/24 17:31 07/01/24 18:45 07/01/24 18:45 07/01/24 18:32 07/01/24 18:45
MDM/Problems Addressed
MDM/Problems Addressed:
Patient remained in normal sinus rhythm and asymptomatic in the emergency department. Labs are reassuring. Incidentally he request that I review an outpatient CT scan from yesterday that was done for evaluation of a abdominal mass that was found
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
*Critical Care Note
Total Time (30-74mins, 75-104mins- exclusive of procedures): Not Applicable
ED Attending Note
-
Portions of this chart may have been created with voice recognition software.� Occasional wrong word or��sound alike� substitutions may have occurred due to the inherent limitations of voice recognition software.
Discharge Plan
Departure
Patient Disposition: Home (Routine Discharge)
Date of Disposition: 07/01/24
Time of Disposition: 18:52
Patient with high blood pressure during this ER visit?: No
Discharge Problem:
Paroxysmal A-fib, Adrenal myelolipoma
Instructions: Atrial Fibrillation (DC)
Prescriptions:
No Action
Eliquis 5 mg tablet
5 mg PO BID Qty: 60 0RF
metoprolol succinate [Toprol XL] 25 mg tablet extended release 24 hr
25 mg PO DAILY Qty: 30 0RF
Referrals:
Roz Herrera PA [Family Provider] -
Activity Restrictions/Additional Instructions:
The mass on your adrenal gland is likely benign, however it is quite large at 8cm. Please discuss with your primary care physician; based on size it may be reasonable to re-image in 12 months, vs consult with a surgeon for excision
Interventions
Interventions:
*Risk Screen - Suicide Last Done: 07/01/24 18:33
*General Assessment Last Done: 07/01/24 17:31
*Neglect/Abuse Screening Last Done: 07/01/24 17:31
ED- Fall Risk Assessment Last Done: 07/01/24 18:33
*ED COVID-19 Vaccine History Last Done: 07/01/24 17:31
*Nursing Disposition Last Done: 07/01/24 19:24
ED- Cardiac Assessment Last Done: 07/01/24 18:33
ED- Pulmonary Assessment Last Done: 07/01/24 18:33
Discharge Date and Time
Discharge Date/Time: 07/01/24 19:25
Print Language: WOLOF
== END 2024-07-01 19:25 | disposition home or self-care (01) ==
LOC: EMR 17:29
PROVIDERS: Physician Assistant; EMERGENCY PHYSICIAN Student in an Organized Health Care Education/Training Program; FAMILY PHYSICIAN Family Medicine
DX: I48.0 Paroxysmal atrial fibrillation (principal); D17.79 Benign lipomatous neoplasm of other sites; F17.290 Nicotine dependence, other tobacco product, uncomplicated
CPT/HCPCS: 99284; 80053; 84484; 85025; 93005

== ENCOUNTER 2024-07-23 18:37 | Inpatient (IN) | payer MEDICARE, SELFPAY ==
[2024-07-23] VITALS (9 sets, daily range): BP systolic 122–184; BP diastolic 82–109; BMI 30.3; BMI 29.2
[2024-07-23] MEDS: MOTRIN 400 MG PO (12:25)
[2024-07-23] MEDS: NSS 500 IV (12:25)
[2024-07-23 12:41] LABS: % Basophils 0.4 % (0-2); % Eosinophils 0.3 % (0-6); % Immature Granulocytes 0.5 % (0-0.5); % Lymphocytes 10.4 % (20.5-51.1); % Monocytes 8.2 % (1.7-9.3); % Neutrophils 80.2 % (42.2-75.2); Absolute Basophils 0.1 10^3/uL (0-0.2); Absolute Immature Granulocytes 0.1 10^3/uL (0-0.05); Absolute Lymphocytes 1.4 10^3/uL (1.2-3.4); Absolute Monocytes 1.1 10^3/uL (0.1-0.6); Hematocrit 38.7 % (39.0-52.0); Hemoglobin 14.2 g/dL (13.0-18.0); Mean Corp Hgb Conc. 36.7 g/dL (33.0-37.0); Mean Corpuscular Hgb 28.7 pg (27.0-31.0); Mean Corpuscular Volume 78.3 fL (80.0-94.0); Mean Platelet Volume 9.6 fL (7.4-10.4); Nucleated Red Blood Cells % 0 % (-); Platelet Count 164 10^3/uL (130-400); Red Blood Cell Count 4.94 10^6/uL (4.70-6.10); Red Cell Dist. Width 12.6 % (11.5-14.5); White Blood Cell Count 13.7 10^3/uL (4.8-10.8)
[2024-07-23 12:57] LABS: Urine Albumin Negative (Neg - Trace); Urine Bilirubin Negative (Negative); Urine Character Clear (Clear); Urine Color Yellow; Urine Glucose Negative (Negative); Urine Ketone Negative (Negative); Urine Leukocyte Negative (Negative); Urine Nitrite Negative (Negative); Urine Occult Blood 2+ (Negative); Urine Urobilinogen Negative (Neg - 1+); Urine pH 6.5 (5.0-9.0)
[2024-07-23 12:57] LABS: ALT (SGPT) 31 U/L (0-50); AST (SGOT) 31 U/L (17-59); Albumin 4.5 g/dl (3.5-5.0); Alkaline Phosphatase 83 U/L (38-126); Blood Urea Nitrogen 20 mg/dl (9-20); Calcium 9.8 mg/dl (8.4-10.2); Carbon Dioxide 26 mmol/L (22-30); Chloride 100 mmol/L (98-107); Estimated Creatinine Clearance 91 ml/min; Glucose 110 mg/dl (70-99); Lactic Acid 1.1 mmol/L (0.7-2.0); Potassium 4.2 mmol/L (3.5-5.1); Sodium 138 mmol/L (135-145); Total Bilirubin 0.6 mg/dl (0.2-1.3); Total Protein 7.5 g/dl (6.3-8.2); eGFR > 60.00
[2024-07-23 13:03] LABS: COVID-19 Antigen Negative (Negative)
[2024-07-23 13:06] LABS: Urine White Cell 0-2 /HPF (0-5)
[2024-07-23 13:07] LABS: Urine Bacteria Few (Negative)
[2024-07-23 13:15] LABS: Procalcitonin 0.14 ng/ml (0.0-0.25)
[2024-07-23] MEDS: ROCEPHIN 1000 MG IV (16:33)
[2024-07-23] MEDS: ZITHROMAX INFUSION 250 IV (16:37)
--- NOTE | 2024-07-23 16:57 | ED.GENMED ---
History of Present Illness
General
Chief Complaint: Headache
Source: patient
Time Seen by Provider: 07/23/24 12:00
History of Present Illness
History of Present Illness:
49-year-old male presents to the emergency room complaining of rapid heart rate, headache, mild shortness of breath. Patient states symptoms began today. He does have a history of A-fib for which she sees Dr. Espinal. Patient also has a history of
psoriasis for which he takes Humira and he also takes meds for bipolar disease and prescribed stress disorder. Patient denies any recent travel. He denies any abdominal pain, nausea, vomiting, dysuria or frequency.
Past History
Past History
ED Past Medical History: HTN and Psychiatric (anxiety)
Social History
Tobacco: Vaping
Alcohol: Occasional
Drug: None
Phy Exam
Physical Exam
Physical Exam:
General: Awake, Alert, Oriented X3. Appears mildly uncomfortable
Vitals: Tachycardic, febrile
Head: Atraumatic
Eyes: Pupils equal, EOMI
Throat: Airway intact, no exudates
Neck: Trachea midline
Lungs: Few rhonchi
Heart: Regular rate, no murmurs
Abd: Soft, Nontender, No pulsatile mass
Neuro: Nonfocal
Skin: Warm, dry, no rash
Extremities: pulses equal b/l, no edema
Sepsis
Sepsis Screening
Sepsis Assessment: Sepsis
Sepsis Screen
Sepsis Screen: Sepsis
Date: 07/23/24
Time: 17:06
Course
Orders/Labs/Results
Orders:
Orders
07/23/24 11:36
ECG [Electrocardiogram (*1)] Urgent
Reason for Study: Palpitations
EKG- Treatment ONCE
07/23/24 12:18
Cardiac Monitoring- Treatment ONCE
0.9% Sodium Chloride 500 ml [Nss] 500 ml IV BOLUS
Ibuprofen [Motrin] 400 mg PO NOW STA
07/23/24 12:19
CR Chest - 2 Views Urgent
Comment:
Reason For Exam: fever
07/23/24 12:26
COVID-19 Antigen Urgent
Source: Nasal Swab
Complete Blood Count/With Diff Urgent
Comprehensive Metabolic Panel Urgent
Lactic Acid Q4H
Comment: CANCEL 2nd LACTIC ACID IF 1st LACTIC ACID IS LESS THAN 2
Procalcitonin Urgent
PCT Algorithmm Indication: Sepsis
Blood Culture Urgent
VANIA Source: Blood/Venous
Specimen Description:
Influenza A+B Rapid Molecular Urgent
VANIA Source: Nasal Swab
Specimen Description:
07/23/24 12:45
Urinalysis Reflex To Culture Urgent
Date Specimen was Collected: 07/23/24
Time Specimen was Collected: 12:43
Urine Microscopic Reflex Cult Urgent
07/23/24 16:21
Azithromycin 500 mg/250 ml [Zithromax Infusion] 500 mg in 250 ml IV NOW
CefTRIAXone [Rocephin] 1,000 mg IV NOW STA
07/23/24 16:32
Electrocardiogram (*1) Urgent
Reason for Study: Palpitations
EKG- Treatment ONCE
Abnormal Lab Results
07/23/24 07/23/24
12:26 12:45
WBC 13.7 H 10^3/uL
(4.8-10.8)
Hct 38.7 L %
(39.0-52.0)
MCV 78.3 L fL
(80.0-94.0)
Abs Immat Gran (auto) 0.1 H 10^3/uL
(0-0.05)
Absolute Neuts (auto) 11.0 H 10^3/uL
(1.4-6.5)
Absolute Monos (auto) 1.1 H 10^3/uL
(0.1-0.6)
Neutrophils % 80.2 H %
(42.2-75.2)
Lymphocytes % 10.4 L %
(20.5-51.1)
Glucose 110 H mg/dl
(70-99)
Ur Occult Blood Reflex 2+ A
(Negative)
Urine RBC 3-6 A /HPF
(0-2)
Urine Bacteria (Reflex) Few A
(Negative)
07/23/24 12:26
07/23/24 12:26
Vital Signs
Initial and Last Documented VS:
Initial Vital Signs
Temp Pulse Resp BP Pulse Ox
101.8 F H 128 18 184/109 96
07/23/24 11:37 07/23/24 11:37 07/23/24 11:37 07/23/24 11:37 07/23/24 11:37
Last Documented Vital Signs
Temp Pulse Resp BP Pulse Ox
99.2 F 83 14 126/83 94
07/23/24 15:05 07/23/24 16:45 07/23/24 16:45 07/23/24 16:40 07/23/24 16:45
MDM/Problems Addressed
Differential Diagnosis Includes:
Viral illness, pneumonia, urinary tract infection, COVID, influenza
MDM/Problems Addressed:
Patient presents with rapid heart rate and fever. EKG shows changes consistent with type I Brugada. Aggressive temperature control with acetaminophen and ibuprofen. His temperature did improve and his heart rate improved. Changes have gone away.
Workup for his fever shows a right-sided infiltrate. Pro-Orion noted to be low but given his high fever, chest x-ray changes and elevated white count will cover with antibiotics. 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
Kylie. Recommends observation and temperature control for the next 24 hours they will see the patient in the morning.
Chronic conditions affecting care: Arrhythmia (Atrial fibrillation) and Other
Acute Exacerbation and/or Progression of Chronic Illness:
Psoriasis on Humira
*Radiology
Radiology exam reviewed: preliminary read by ED provider (I reviewed the patient's chest x-ray shows right upper lobe pneumonia)
*Pulse Oximetry
Patient hypoxic: no
*EKG
Heart Rate: 116
Rate: tachycardiac
Rhythm: sinus
QRS Pattern: other (Type I Brugada)
*Acid Purification Equipment Operator Interpretation
Rate: tachycardiac
Interpretation: abnormal
Heart Rate: 116
Rhythm: sinus tachycardia
*Critical Care Note
Total Time (30-74mins, 75-104mins- exclusive of procedures): Not Applicable
ED Attending Note
-
Portions of this chart may have been created with voice recognition software.� Occasional wrong word or��sound alike� substitutions may have occurred due to the inherent limitations of voice recognition software.
Discharge Plan
Departure
Patient Disposition: Admit
Date of Disposition: 07/23/24
Time of Disposition: 17:05
Admit to: Telemetry
Presentation/result/management discussed w/ accepting MD/DO: Hospitalist
Condition: Fair
Discharge Problem:
Pneumonia, Brugada syndrome
Prescriptions:
No Action
Eliquis 5 mg tablet
5 mg PO BID Qty: 60 0RF
diltiazem HCl 240 mg Capsule,Extended Release 24hr
240 mg PO DAILY
Patient Comments:
new prescription- took 120mg this AM
lamotrigine [Lamictal] 25 mg Tablet
25 mg PO HS
oxycodone 15 mg Tablet
15 mg PO TID
pantoprazole 40 mg Tablet,Delayed Release (Dr/Ec)
40 mg PO DAILY
lorazepam [Ativan] 1 mg Tablet
1 mg PO TID PRN (Reason: anxiety)
lisinopril 40 mg Tablet
40 mg PO DAILY
lurasidone [Latuda] 40 mg Tablet
40 mg PO QPM
Referrals:
Roz Herrera PA [Family Provider] -
Interventions
Interventions:
*Risk Screen - Suicide Last Done: 07/23/24 11:37
*General Assessment Last Done: 07/23/24 11:37
*Neglect/Abuse Screening Last Done: 07/23/24 11:37
ED- Fall Risk Assessment Last Done: 07/23/24 12:33
*ED COVID-19 Vaccine History Last Done: 07/23/24 12:32
ED- Neurological Assessment Last Done: 07/23/24 12:33
Discharge Date and Time
Print Language: GEORGIAN
--- NOTE | 2024-07-23 18:00 | HPS.HSE ---
Family Physician
-
Family Physician: Roz Herrera
Chief Complaint
-
headache, tachycardia
History of Present Illness
49-year-old male past medical history of paroxysmal atrial fibrillation, hypertension, anxiety, bipolar disorder, psoriasis presenting with rapid heart rate, headache, and fever with chills starting today. He denies any cough or shortness of
breath. He denies any palpitations or dizziness. He denies any nausea vomiting or diarrhea or abdominal pain.
He denies smoking or alcohol use.
Medical History
Past Medical History
Past Medical History: Reports Other (paroxysmal atrial fibrillation, hypertension, anxiety, bipolar disorder, psoriasis)
Past Surgical History: Reports None
Social History
Tobacco: Non-smoker
Alcohol: None
Drug: None
Family History
Family History: Not pertinent
Allergies / Home Medications
Allergies reflects when Allergies were last updated in [employer].
Home Medications with original date entered in [employer]
Allergy/Medication List:
Allergies
Allergy/AdvReac Type Severity Reaction Status Date / Time
No Known Allergies Allergy Unverified 04/22/24 20:37
Home Medications
apixaban 5 mg tablet (Eliquis) 5 mg PO BID #60 tabs 04/22/24
diltiazem HCl 240 mg capsule,extended release 24 hr 240 mg PO DAILY 07/23/24
lamotrigine 25 mg tablet (Lamictal) 25 mg PO HS 07/23/24
lisinopril 40 mg tablet 40 mg PO DAILY 07/23/24
lorazepam 1 mg tablet (Ativan) 1 mg PO TID PRN anxiety 07/23/24
lurasidone 40 mg tablet (Latuda) 40 mg PO QPM 07/23/24
oxycodone 15 mg tablet 15 mg PO TID 07/23/24
pantoprazole 40 mg tablet,delayed release 40 mg PO DAILY 07/23/24
Review of Systems
-
History Source: Patient
A 12 point ROS was completed and negative except as noted: Yes
Constitutional: Reports No Symptoms
EENT: Reports No Symptoms
Respiratory: Reports See HPI
Cardiac: Reports See HPI
Abdomen/GI: Reports No Symptoms
: Reports No Symptoms
Musculoskeletal: Reports No Symptoms
Skin: Reports No Symptoms
Neurological: Reports No Symptoms
Endocrine: Reports No Symptoms
Hematologic/Lymphatic: Reports No Symptoms
Psych: Reports No Symptoms
Physical Exam
Vital Signs
Vital Signs
Temp Pulse Resp BP Pulse Ox
99.2 F 83 11 129/90 93
07/23/24 15:05 07/23/24 17:45 07/23/24 17:45 07/23/24 17:00 07/23/24 17:45
Physical Exam
General: Well Developed, Well Nourished and No Apparent Distress
HEENT: NormoCephalic, Moist mucous membranes and Atraumatic
Respiratory: Clear
Cardiac: S1/S2 and Regular Rhythm; No Murmur or Rub
GI: Soft, Non Tender, Non Distended and Normal Bowel Sounds; No Organomegaly
Rectal: Deferred by Provider
Musculoskeletal: No Clubbing, No Cyanosis and No Edema
Skin: No Rash
Neuro: Nonfocal/grossly intact
Laboratory Results
-
07/23/24 12:26
07/23/24 12:26
Laboratory Results
Lactic Acid Cancelled 07/23/24 16:30
Total Bilirubin 0.6 mg/dl (0.2-1.3) 07/23/24 12:26
AST 31 U/L (17-59) 07/23/24 12:26
ALT 31 U/L (0-50) 07/23/24 12:26
Alkaline Phosphatase 83 U/L (38-126) 07/23/24 12:26
Data Reviewed
-
Lab Data: Labs Reviewed by me
Old Records: Reviewed
Impression/Plan
-
IMPRESSION:
PLAN:
# Sepsis (tachycardia, leukocytosis ) secondary to right upper lobe pneumonia
-COVID-negative
-IV fluids
-Blood culture
-Ceftriaxone/azithromycin
# Type I Brugada changes on EKG with sinus tachycardia
-Resolved on second EKG
-Control fever
-Cardiology consulted
Paroxysmal atrial fibrillation
-Continue Eliquis
-Continue diltiazem
Essential hypertension
-Continue lisinopril
Psoriasis
Anxiety/bipolar disorder
-Continue Ativan
-Continue Lamictal
-Continue lurasidone
Full code
DVT prophylaxis�heparin
Regular diet
--- NOTE | 2024-07-23 19:30 | PTCARENOTE ---
Received patient from ED via stretcher. Patient ambulated from stretcher to bed independently. Patient reports chronic left lower back pain. Oriented patient to room and placed call george within reach.
[2024-07-23] MEDS: NSS 1000 IV (19:46)
[2024-07-23] MEDS: ELIQUIS 5 MG PO (19:52)
[2024-07-23] MEDS: LATUDA 40 MG PO (21:41)
[2024-07-23] MEDS: ROXICODONE 15 MG PO (21:41)
[2024-07-23] MEDS: LAMICTAL 25 MG PO (21:41)
[2024-07-23] MEDS: ATIVAN 1 MG PO (22:01)
[2024-07-24 04:05] VITALS: BP 120/79
[2024-07-24] MEDS: NSS 1000 IV (04:51)
[2024-07-24 07:44] LABS: % Basophils 0.4 % (0-2); % Eosinophils 1.5 % (0-6); % Immature Granulocytes 0.4 % (0-0.5); % Lymphocytes 20.3 % (20.5-51.1); % Monocytes 9.8 % (1.7-9.3); % Neutrophils 67.6 % (42.2-75.2); Absolute Eosinophils 0.2 10^3/uL (0-0.7); Absolute Neutrophils 6.7 10^3/uL (1.4-6.5); Hematocrit 35.2 % (39.0-52.0); Hemoglobin 12.3 g/dL (13.0-18.0); Mean Corp Hgb Conc. 34.9 g/dL (33.0-37.0); Mean Corpuscular Hgb 28.5 pg (27.0-31.0); Mean Corpuscular Volume 81.7 fL (80.0-94.0); Mean Platelet Volume 10.6 fL (7.4-10.4); Nucleated Red Blood Cells % 0 % (-); Platelet Count 147 10^3/uL (130-400); Red Blood Cell Count 4.31 10^6/uL (4.70-6.10); Red Cell Dist. Width 12.7 % (11.5-14.5)
[2024-07-24 07:47] VITALS: BP 137/88
[2024-07-24 08:17] LABS: ALT (SGPT) 23 U/L (0-50); AST (SGOT) 21 U/L (17-59); Albumin 3.4 g/dl (3.5-5.0); Alkaline Phosphatase 63 U/L (38-126); Blood Urea Nitrogen 19 mg/dl (9-20); Calcium 8.7 mg/dl (8.4-10.2); Carbon Dioxide 26 mmol/L (22-30); Chloride 104 mmol/L (98-107); Estimated Creatinine Clearance 90 ml/min; Glucose 104 mg/dl (70-99); Potassium 4.3 mmol/L (3.5-5.1); Sodium 140 mmol/L (135-145); Total Bilirubin 0.5 mg/dl (0.2-1.3); eGFR > 60.00
[2024-07-24] MEDS: CARDIZEM CD 240 MG PO (08:46)
[2024-07-24] MEDS: ZESTRIL 40 MG PO (08:46)
[2024-07-24] MEDS: PROTONIX 40 MG PO (08:46)
[2024-07-24] MEDS: ELIQUIS 5 MG PO ×2 (08:47→21:04)
[2024-07-24] MEDS: ROXICODONE 15 MG PO ×3 (08:47→21:05)
[2024-07-24] MEDS: CRESTOR 10 MG PO (09:51)
[2024-07-24 09:59] VITALS: BMI 29.2
--- NOTE | 2024-07-24 10:06 | CON.CAR ---
Addendum entered and electronically signed by Dane Figueroa DO 07/24/24 12:16:
I saw and examined the patient.
The Marketing And Public Relations Manager's note was reviewed and I agree with the note.
Comment:
Plan:
EKG with Brugada pattern in setting of fever and PNA.
Cont supportive care and tx of PNA and fever
Recent echo reviewed and EF preserved
Meds reviewed.
Known hx of PAfib on Eliquis. He is considering PVI for 2024.
Already has outpt follow up scheduled for 2 weeks.
May be considered for monitor at that time pending any clinical change.
Discussed symptoms to look for including syncope
Original Note:
Consultation
Consultation Request
Date/Time Consultation Requested: 07/23/2024 at 1800
Date/Time Consultation Performed: 07/24/2024 at 1000
Requesting Provider: Dr. Singletary
Performing Provider: Blanca Buitrago PA-C for Dr. Figueroa
Reason for Consultation: Brugada Pattern on EKG
Medical History
-
History of Present Illness:
HPI: Tor is a 49 year old male with PMH of paroxysmal atrial fibrillation, hypertension, hyperlipidemia, and anxiety who presents to [facility] for evaluation of headache, fever, and heart racing. He reports he took two tylenol prior to coming to ER as
he felt like he had a fever. On arrival to ER, he was febrile with Tmax 102.2. CXR showed evidence of RUL pneumonia and he was started on IV antibiotics. Labwork overall unremarkable. EKG showed SR with Brugada pattern Type 1 and cardiology
consulted for evaluation. He notes no history of syncope or near syncope. No family history of sudden cardiac . He notes occasional palpitations, however has attributed this in the past to his atrial fibrillation. No recent palpitations or
episodes of atrial fibrillation noted. He currently denies chest pain, SOB, or dizziness.
PMH:
Paroxysmal atrial fibrillation
Chronic Eliquis OAC
HTN
HLD
Anxiety/Bipolar disorder
Past Medical History
Past Medical History: Other (In HPI)
Past Surgical History: Other (Sinus surgery)
Social History
Tobacco: Former Smoker
Alcohol: None
Drug: None
Personal:
Living: With Family
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
Family History
Family History: Reviewed & Not Pertinent
Allergies / Home Medications
Allergy/AdvReac Type Severity Reaction Status Date / Time
No Known Allergies Allergy Unverified 04/22/24 20:37
�Medication �Instructions �Recorded �Confirmed �Type
apixaban 5 mg tablet (Eliquis) 5 mg PO BID #60 tabs 04/22/24 07/23/24 Rx
diltiazem HCl 240 mg 240 mg PO DAILY Blood Pressure 07/23/24 07/23/24 History
capsule,extended release 24 hr
lamotrigine 25 mg tablet (Lamictal) 25 mg PO HS Mental Health/Anxiety 07/23/24 07/23/24 History
lisinopril 40 mg tablet 40 mg PO DAILY Blood Pressure 07/23/24 07/23/24 History
lorazepam 1 mg tablet (Ativan) 1 mg PO TID PRN anxiety 07/23/24 07/23/24 History
lurasidone 40 mg tablet (Latuda) 40 mg PO QPM Mental Health/Anxiety 07/23/24 07/23/24 History
oxycodone 15 mg tablet 15 mg PO TID Pain 07/23/24 07/23/24 History
pantoprazole 40 mg tablet,delayed 40 mg PO DAILY Gastrointestinal 07/23/24 07/23/24 History
release Issue
rosuvastatin 10 mg tablet 10 mg PO DAILY 07/24/24 07/24/24 History
Review of Systems
-
History Source: Patient
All other systems: Negative unless noted
Physical Exam
Vital Signs
Temp Pulse Resp BP Pulse Ox
98 F 84 18 137/88 94
07/24/24 07:47 10/21/24 08:46 07/24/24 07:47 07/24/24 08:46 07/24/24 07:47
Lab Results
07/24/24 06:05
07/24/24 06:05
Physical Exam
General: Well Developed, Well Nourished and No Apparent Distress
HEENT: Normocephalic, Anicteric and Moist Mucous Membranes
Respiratory: Clear and Non Labored Respirations
Cardiac: S1/S2 and Regular Rhythm
Musculoskeletal: No Clubbing, No Cyanosis and No Edema
Skin: Warm and Dry
Neuro: AO x 3 and Nonfocal/Grossly Intact
Psych: Calm
Impression / Plan
-
PCP: Roz Herrera
Food Analyst: Dr. Lion
Impression:
Presented with headache, fever
RUL PNA
Brugada Pattern, Type 1
Paroxysmal atrial fibrillation
Chronic Eliquis OAC
HTN
HLD
Anxiety/Bipolar disorder
Echo 05/25/2024: EF 60-65%, mild MR, trace TR, estimated PAP 24 mmHg
Plan:
-Presented with fever, headache, and elevated HR. Found to have RUL PNA. Continue abx per primary service.
-Initial EKG reviewed. SR with Brugada pattern Type 1. No known personal or family history.
-No history of syncope, near syncope. Does have occasional palpitations, however has attributed this to atrial fibrillation given know history. No recent symptoms.
-Will recheck EKG this AM with resolution of fever.
-May consider monitor as OP to continue monitoring for arrhythmia.
-Echo 05/25 with preserved EF and mild MR as noted above.
-Coronary calcium score 06/2024 25. Continues on rosuvastatin 10mg daily
-Continue Eliquis 5mg BID
-Follow up arranged.
HPI: Tor is a 49 year old male with PMH of paroxysmal atrial fibrillation, hypertension, hyperlipidemia, and anxiety who presents to [facility] for evaluation of headache, fever, and heart racing. He reports he took two tylenol prior to coming to ER as
he felt like he had a fever. On arrival to ER, he was febrile with Tmax 102.2. CXR showed evidence of RUL pneumonia and he was started on IV antibiotics. Labwork overall unremarkable. EKG showed SR with Brugada pattern Type 1 and cardiology
consulted for evaluation. He notes no history of syncope or near syncope. No family history of sudden cardiac . He notes occasional palpitations, however has attributed this in the past to his atrial fibrillation. No recent palpitations or
episodes of atrial fibrillation noted. He currently denies chest pain, SOB, or dizziness.
Data Reviewed
-
EKG: Tracing Personally Visualized and interpreted
Radiology: Report Reviewed by me
Labs: Labs Reviewed by me
Old Records: Reviewed
[2024-07-24 11:40] VITALS: BP 132/86
--- NOTE | 2024-07-24 11:54 | W.PN.HOSP.TC ---
Today's Communication/Plan
-
Bcx in labs
await cards
trend fever curve
Cont abx
Assessment / Plan
Assessment / Plan
General: Well Developed, Well Nourished and No Apparent Distress
HEENT: NormoCephalic, Moist mucous membranes and Atraumatic
Respiratory: Clear
Cardiac: S1/S2 and Regular Rhythm; No Murmur or Rub
GI: Soft, Non Tender, Non Distended and Normal Bowel Sounds; No Organomegaly
Rectal: Deferred by Provider
Musculoskeletal: No Clubbing, No Cyanosis and No Edema
Skin: No Rash
Neuro: Nonfocal/grossly intact
# Sepsis (tachycardia, leukocytosis ) secondary to right upper lobe pneumonia
-COVID and influenza negative. Strep pneum antigen pending.
-IV fluids- can be stopped.
-Blood culture pending
-Ceftriaxone/azithromycin
-trend wbc/fever curve. Temp improved.
# Type I Brugada changes on EKG with sinus tachycardia
-Resolved on second EKG
-Control fever
-Cardiology consulted
Paroxysmal atrial fibrillation
-Continue Eliquis
-Continue diltiazem
Essential hypertension
-Continue lisinopril
Psoriasis
Anxiety/bipolar disorder
-Continue Ativan 1mg TID PRN-OP regimen
-Continue Lamictal
-Continue lurasidone
Chronic opiate dependent daily basis
-Continue home regimen of oxycodone
HLD
-Cont statin
Full code
DVT prophylaxis�heparin
Anticipated Discharge: Within 24 hours
Subjective/Interval History
-
Date of Service: July 24, 2024
feeling better
on room air
denies chest pain
anxious
Objective Data
-
Labs:
Laboratory Results
07/24/24
06:05
WBC 10.0
Hgb 12.3 L
Hct 35.2 L
Plt Count 147
Sodium 140
Potassium 4.3
Chloride 104
Carbon Dioxide 26
BUN 19
Creatinine 1.0
Glucose 104 H
Calcium 8.7
Total Bilirubin 0.5
AST 21
ALT 23
Alkaline Phosphatase 63
Vital Signs:
Vital Signs
Temp Pulse Resp BP Pulse Ox
98 F 76 18 132/86 95
07/24/24 11:40 07/24/24 11:40 07/24/24 11:40 07/24/24 11:40 07/24/24 11:40
I&O
07/23/24 07/24/24 07/25/24
06:59 06:59 06:59
Intake Total 2370 / 2370 480 / 480
Balance 2370 / 2370 480 / 480
Data Reviewed
-
Total Time Spent with Patient (in minutes): 51
[2024-07-24] MEDS: ZITHROMAX INFUSION 250 IV (15:37)
[2024-07-24] MEDS: ROCEPHIN 1000 MG IV (15:37)
[2024-07-24] MEDS: STERILE WATER FOR INJECTION 10 ML IV (15:37)
[2024-07-24 15:54] VITALS: BP 125/79
[2024-07-24 19:50] VITALS: BP 143/97
[2024-07-24] MEDS: ATIVAN 1 MG PO (21:04)
[2024-07-24] MEDS: LATUDA 40 MG PO (21:04)
[2024-07-24] MEDS: LAMICTAL 25 MG PO (21:05)
[2024-07-24] MEDS: TYLENOL 650 MG PO (22:35)
[2024-07-24 23:52] VITALS: BP 114/65
[2024-07-25 03:19] VITALS: BP 133/82
[2024-07-25 07:00] VITALS: BP 113/77
[2024-07-25 07:46] LABS: % Basophils 0.5 % (0-2); % Eosinophils 2.8 % (0-6); % Immature Granulocytes 0.6 % (0-0.5); % Lymphocytes 30.6 % (20.5-51.1); % Monocytes 10.9 % (1.7-9.3); % Neutrophils 54.6 % (42.2-75.2); Absolute Eosinophils 0.2 10^3/uL (0-0.7); Absolute Immature Granulocytes 0.1 10^3/uL (0-0.05); Absolute Lymphocytes 2.5 10^3/uL (1.2-3.4); Absolute Monocytes 0.9 10^3/uL (0.1-0.6); Absolute Neutrophils 4.5 10^3/uL (1.4-6.5); Hemoglobin 13.1 g/dL (13.0-18.0); Mean Corp Hgb Conc. 36.4 g/dL (33.0-37.0); Mean Corpuscular Hgb 29.2 pg (27.0-31.0); Mean Corpuscular Volume 80.2 fL (80.0-94.0); Mean Platelet Volume 10.1 fL (7.4-10.4); Nucleated Red Blood Cells % 0 % (-); Platelet Count 161 10^3/uL (130-400); Red Blood Cell Count 4.49 10^6/uL (4.70-6.10); Red Cell Dist. Width 12.8 % (11.5-14.5); White Blood Cell Count 8.2 10^3/uL (4.8-10.8)
[2024-07-25 08:04] LABS: Blood Urea Nitrogen 12 mg/dl (9-20); Calcium 9.1 mg/dl (8.4-10.2); Carbon Dioxide 27 mmol/L (22-30); Chloride 104 mmol/L (98-107); Estimated Creatinine Clearance 100 ml/min; Glucose 104 mg/dl (70-99); Potassium 4.2 mmol/L (3.5-5.1); Sodium 142 mmol/L (135-145); eGFR > 60.00
[2024-07-25] MEDS: CARDIZEM CD 240 MG PO (08:39)
[2024-07-25] MEDS: ROXICODONE 15 MG PO (08:39)
[2024-07-25] MEDS: ELIQUIS 5 MG PO (08:39)
[2024-07-25] MEDS: PROTONIX 40 MG PO (08:39)
[2024-07-25] MEDS: ZESTRIL 40 MG PO (08:39)
[2024-07-25] MEDS: CRESTOR 10 MG PO (08:40)
--- NOTE | 2024-07-25 09:41 | W.PN.CARDCBS ---
Addendum entered and electronically signed by Bryan Waldrop MD 07/25/24 11:33:
I saw and examined the patient.
The BASE CLOTH INSPECTOR or PA's note was reviewed and I agree with the note.
Comment: General: Well developed, well nourished in NAD.
Brugada pattern not seen on ECG 07/25
Discussed with patient in detail. No further cardiology issues. Will sign off, call with questions. Cardiology follow-up put in discharge instructions.
Original Note:
Today's Communication / Plan
-
Continue treatment of pneumonia with antibiotics per primary service
Brugada pattern resolved on repeat EKG 07/25/2024
Avoid tricyclic antidepressants which can exacerbate Brugada pattern
Outpatient cardiology follow-up has been arranged and placed in chart, stable for d/c from cardiac standpoint
Impression / Plan
-
PCP: Roz Herrera
Motor Installer: Dr. Lion
Impression:
Presented with headache, fever
RUL PNA
Brugada Pattern, Type 1
Paroxysmal atrial fibrillation
Chronic Eliquis OAC
HTN
HLD
Anxiety/Bipolar disorder
Echo 05/25/2024: EF 60-65%, mild MR, trace TR, estimated PAP 24 mmHg
Medicare Nurse� 5-day event monitor (worn 2 days due to artifact) 04/2024: Sinus rhythm 52-120 bpm, average 81 bpm, PAC/PVC less than 0.1%, no AF, no arrhythmias, no pauses, symptoms correlated to sinus rhythm.
Plan:
-Presented 07/23/24 with fever, headache, and elevated HR. Found to have RUL PNA. Continue abx per primary service.
-Initial EKG reviewed. SR with Brugada pattern Type 1 (No known personal or family history of Brugada), repeat ECGs with improvement and resolution on ECG 07/25/24 in am. May have been related to pneumonia and fevers. Also certain tricyclic
antidepressants and antipsychotic medications can increase the risk of Brugada pattern
-No history of syncope, near syncope. Does have occasional palpitations, however has attributed this to atrial fibrillation given know history. No recent symptoms.
-Previous outpatient monitor in March 2024 as noted above shows sinus rhythm with PACs PVCs no arrhythmias pauses
-He has cardiac follow up 08/14/2024 with electrophysiology
-Echo 05/25 with preserved EF and mild MR as noted above.
-Coronary calcium score 06/2024 25. Continues on rosuvastatin 10mg daily
-Continue Eliquis 5mg BID
-Blood pressure stable on current regimen of diltiazem and lisinopril
-Continue to treat pneumonia with IV antibiotics per primary service
-Follow up arranged.
HPI: Tor is a 49 year old male with PMH of paroxysmal atrial fibrillation, hypertension, hyperlipidemia, and anxiety who presents to [facility] for evaluation of headache, fever, and heart racing. He reports he took two tylenol prior to coming to ER as
he felt like he had a fever. On arrival to ER, he was febrile with Tmax 102.2. CXR showed evidence of RUL pneumonia and he was started on IV antibiotics. Labwork overall unremarkable. EKG showed SR with Brugada pattern Type 1 and cardiology
consulted for evaluation. He notes no history of syncope or near syncope. No family history of sudden cardiac . He notes occasional palpitations, however has attributed this in the past to his atrial fibrillation. No recent palpitations or
episodes of atrial fibrillation noted. He currently denies chest pain, SOB, or dizziness.
Progress Note - Motor Installer
Subjective
Date of Service: July 25, 2024
Patient seen and examined. Patient reports he is feeling well. Denies any cardiac symptoms. He is eager to go home.
Objective
Labs:
07/25/24 06:36
07/25/24 06:36
Labs
Hgb 13.1 g/dL (13.0-18.0) 07/25/24 06:36
Hct 36.0 % (39.0-52.0) L 07/25/24 06:36
Plt Count 161 10^3/uL (130-400) 07/25/24 06:36
Sodium 142 mmol/L (135-145) 07/25/24 06:36
Potassium 4.2 mmol/L (3.5-5.1) 07/25/24 06:36
BUN 12 mg/dl (9-20) 07/25/24 06:36
Creatinine 0.9 mg/dL (0.7-1.3) 07/25/24 06:36
Glucose 104 mg/dl (70-99) H 07/25/24 06:36
Vital Signs and I&O:
Vital Signs
Temp Pulse Resp BP Pulse Ox
98.4 F 67 16 113/77 96
07/25/24 07:00 07/25/24 08:39 07/25/24 07:00 07/25/24 08:39 07/25/24 07:00
Vital Signs
Temp Pulse Resp BP Pulse Ox
98.4 F 67 16 113/77 96
07/25/24 07:00 07/25/24 08:39 07/25/24 07:00 07/25/24 08:39 07/25/24 07:00
Intake & Output
07/23/24 07/24/24 07/25/24 07/26/24
06:59 06:59 06:59 06:59
Intake Total 2370 / 2370 2280 / 2280
Balance 2370 / 2370 2280 / 2280
Physical Exam
Physical Exam
GEN: No distress, awake, Ox3, sitting on side of bed
HEENT: supple, anicteric, mmm
LUNGS: CTA, no wheezes/rales
CV: Reg, S1/S2, no murmur, rub or gallop
ABD: soft, BS+, NT/ND
EXT: No edema, clubbing or cyanosis
NEURO: Gross non-focal
SKIN: No rash, warm, dry, pink
--- NOTE | 2024-07-25 10:53 | W.PN.HOSP.TC ---
Today's Communication/Plan
-
DC Home
Op abx
OP cards f/u
Assessment / Plan
Assessment / Plan
General: Well Developed, Well Nourished and No Apparent Distress
HEENT: NormoCephalic, Moist mucous membranes and Atraumatic
Respiratory: Clear
Cardiac: S1/S2 and Regular Rhythm; No Murmur or Rub
GI: Soft, Non Tender, Non Distended and Normal Bowel Sounds; No Organomegaly
Rectal: Deferred by Provider
Musculoskeletal: No Clubbing, No Cyanosis and No Edema
Skin: No Rash
Neuro: Nonfocal/grossly intact
# Sepsis (tachycardia, leukocytosis ) secondary to right upper lobe pneumonia
-COVID and influenza negative. Strep pneum antigen negative.
-IV fluids- can be stopped.
-Blood culture ngeative so far
-Ceftriaxone/azithromycin. Switch to po abx on dc.
-trend wbc/fever curve. Temp improved.
# Type I Brugada changes on EKG with sinus tachycardia
-Resolved on repeat EKG.
-Control fever.
-Cardiology consulted.
Paroxysmal atrial fibrillation
-Continue Eliquis
-Continue diltiazem
Essential hypertension
-Continue lisinopril
Psoriasis
Anxiety/bipolar disorder
-Continue Ativan 1mg TID PRN-OP regimen
-Continue Lamictal
-Continue lurasidone
Chronic opiate dependent daily basis
-Continue home regimen of oxycodone
HLD
-Cont statin
Full code
DVT prophylaxis�heparin
More than 30 minutes spent in discharge including
Final examination of the patient
Summarizing hospital stay
Instructions for continuing care to all relevant caregivers
Preparation of discharge records, prescriptions, and referral forms
Total time spent (in minutes): 45
Anticipated Discharge: Today
Subjective/Interval History
-
Date of Service: July 25, 2024
feeling better
afebrile
on room air
no chest pain or sob
Objective Data
-
Labs:
Laboratory Results
07/25/24
06:36
WBC 8.2
Hgb 13.1
Hct 36.0 L
Plt Count 161
Sodium 142
Potassium 4.2
Chloride 104
Carbon Dioxide 27
BUN 12
Creatinine 0.9
Glucose 104 H
Calcium 9.1
Vital Signs:
Vital Signs
Temp Pulse Resp BP Pulse Ox
98.4 F 67 16 113/77 96
07/25/24 07:00 07/25/24 08:39 07/25/24 07:00 07/25/24 08:39 07/25/24 07:00
I&O
07/24/24 07/25/24 07/26/24
06:59 06:59 06:59
Intake Total 2370 / 2370 2280 / 2280
Balance 2370 / 2370 2280 / 2280
--- NOTE | 2024-07-25 10:57 | W.DCSUMMARY ---
Discharge Summary
Discharge Data
Date of Admission: 07/23/24
Date of Discharge: 07/25/24
-
Pending Results: No
Hospital Course
49-year-old male past medical history of atrial fibrillation, hypertension, psoriasis, anxiety, bipolar disorder, chronic opiate dependent daily basis, hyperlipidemia is presenting with severe fevers. Patient was found to be septic secondary to
pneumonia. COVID and influenza was found to be negative. Patient was started on ceftriaxone and azithromycin. Patient also with abnormal EKG with type I Brugada pattern which was secondary to fevers. Cardiology was consulted. Repeat EKG with
resolution of type I Brugada. Patient with resolution of fever. White count stabilized. Patient was tolerating diet. Patient with transition from IV to p.o. antibiotics. Patient was recommended to have repeat chest x-ray to assess for
resolution of pneumonia and follow-up with his primary director voice.
Discharge Plan
-
Patient Disposition: Home (Routine Discharge)
Discharge Diagnosis/Procedures: Sepsis secondary to pneumonia
Type I Brugada pattern-resolved
Condition: Fair
Diet: Low Cholesterol
Activity: As tolerated
Driving Restrictions: As prior to admission
Others Tests: Repeat chest x-ray in 4 to 6 weeks with PCP
Referrals:
Roz Herrera PA [Family Provider] - in less than 1 week
Juan Lion DO [Active] - 08/14/24 10:40 am (You have a follow up visit with Dr. Lion at the [facility] office. Please call with questions. )
Prescriptions:
New
cefdinir 300 mg capsule
300 mg PO BID Qty: 8 0RF
azithromycin 250 mg tablet
250 mg PO DAILY 4 Days Qty: 4 0RF
Continued
Eliquis 5 mg tablet
5 mg PO BID Qty: 60 0RF
diltiazem HCl 240 mg Capsule,Extended Release 24hr
240 mg PO DAILY
Patient Comments:
new prescription- took 120mg this AM
lamotrigine [Lamictal] 25 mg Tablet
25 mg PO HS
oxycodone 15 mg Tablet
15 mg PO TID
pantoprazole 40 mg Tablet,Delayed Release (Dr/Ec)
40 mg PO DAILY
lorazepam [Ativan] 1 mg Tablet
1 mg PO TID PRN (Reason: anxiety)
lisinopril 40 mg Tablet
40 mg PO DAILY
lurasidone [Latuda] 40 mg Tablet
40 mg PO QPM
rosuvastatin 10 mg Tablet
10 mg PO DAILY
Discharge Orders:
Discharge Patient (As Directed); Ordered 07/25/24
Ordered By: Gallo Lockett
Discharge Date and Time
Discharge Date/Time: 07/25/24 13:36
Print Language: BURKINAN
[2024-07-25 11:00] VITALS: BP 128/91
--- NOTE | 2024-07-25 11:23 | CM ---
Alert awake oriented pt who lives with Lorin who lives in 2 story home with 2 steps to enter and 14 steps to bed bathroom.He is independent with driving and ADLs. offered vn he declined need.
No adaptive devices.
No VN /SNF.
Pharmacy [facility] [place]
PCP Dr Herrera
PLAN Home no needs
== END 2024-07-25 13:36 | disposition home or self-care (01) | DRG 871 ==
LOC: 4 EAST ACU 18:37
PROVIDERS: ADMITTING PHYSICIAN Hospitalist; ATTENDING PHYSICIAN Hospitalist; EMERGENCY PHYSICIAN Emergency Medicine; FAMILY PHYSICIAN Family Medicine; OTHER PHYSICIAN Nuclear Medicine Nuclear Cardiology
DX: A41.9 Sepsis, unspecified organism (principal); J18.9 Pneumonia, unspecified organism; I49.8 Other specified cardiac arrhythmias; I10 Essential (primary) hypertension; L40.9 Psoriasis, unspecified; I48.0 Paroxysmal atrial fibrillation; E78.5 Hyperlipidemia, unspecified; F31.9 Bipolar disorder, unspecified; F41.9 Anxiety disorder, unspecified; Z79.01 Long term (current) use of anticoagulants; Z79.899 Other long term (current) drug therapy; Z87.891 Personal history of nicotine dependence; Z11.52 Encounter for screening for COVID-19
CPT/HCPCS: 71046; 80048; 80053; 81003; 81015; 83605; 84145; 85025; 87040; 87502; 87811; 87899; 93005; 96365; 96375; 99285

== ENCOUNTER 2024-08-12 10:40 | Emergency (ER) | payer MEDICARE, SELFPAY ==
[2024-08-12 10:42] VITALS: BP 165/101
[2024-08-12 10:58] VITALS: BMI 28.3
[2024-08-12 11:17] VITALS: BP 132/94
[2024-08-12 11:20] LABS: % Basophils 0.7 % (0-2); % Eosinophils 1.9 % (0-6); % Immature Granulocytes 0.2 % (0-0.5); % Lymphocytes 21.9 % (20.5-51.1); % Monocytes 7.9 % (1.7-9.3); % Neutrophils 67.4 % (42.2-75.2); Absolute Basophils 0.1 10^3/uL (0-0.2); Absolute Eosinophils 0.2 10^3/uL (0-0.7); Absolute Lymphocytes 2.8 10^3/uL (1.2-3.4); Absolute Neutrophils 8.6 10^3/uL (1.4-6.5); Hematocrit 39.3 % (39.0-52.0); Hemoglobin 14.5 g/dL (13.0-18.0); Mean Corp Hgb Conc. 36.9 g/dL (33.0-37.0); Mean Corpuscular Hgb 29.7 pg (27.0-31.0); Mean Corpuscular Volume 80.4 fL (80.0-94.0); Mean Platelet Volume 9.5 fL (7.4-10.4); Nucleated Red Blood Cells % 0 % (-); Platelet Count 173 10^3/uL (130-400); Red Blood Cell Count 4.89 10^6/uL (4.70-6.10); Red Cell Dist. Width 13.1 % (11.5-14.5); White Blood Cell Count 12.7 10^3/uL (4.8-10.8)
[2024-08-12 11:37] LABS: Blood Urea Nitrogen 16 mg/dl (9-20); Calcium 9.6 mg/dl (8.4-10.2); Carbon Dioxide 29 mmol/L (22-30); Chloride 100 mmol/L (98-107); Estimated Creatinine Clearance 90 ml/min; Glucose 101 mg/dl (70-99); Sodium 140 mmol/L (135-145); eGFR > 60.00
--- NOTE | 2024-08-12 11:54 | ED.GENMED ---
History of Present Illness
General
Chief Complaint: Heart Rate Problem
Source: patient and previous hospital records
Exam Limitations: none
Time Seen by Provider: 08/12/24 10:48
Nursing documentation reviewed up to this point in time: agreed with
History of Present Illness
History of Present Illness:
The patient is a very pleasant 49-year-old man with a past medical history of A-fib on Eliquis as well as a recent diagnosis of Brugada found in the context of him being admitted with fever and pneumonia. Patient reports that he has been feeling
well up until this morning when he noticed pounding in his chest. Patient reports that his watch measured a heart rate in the 160s. Patient denies shortness of breath, lightheadedness and chest pain. Patient reports he still feels pounding in his
chest. He denies cough and fever. He denies nausea vomiting and diarrhea. Patient reports he is very concerned because of what he is read about Brugada. Patient reports that he is due to see cardiology for further workup.
Past History
Past History
ED Past Medical History: Arrthythmia, HTN and Psychiatric (anxiety)
ED Past Surgical History: Other
Social History
Tobacco: Vaping
Alcohol: Occasional
Drug: None
Personal: Other
Living: with family
Employment: Other
Family History
Family History: Other
Review of Systems
Review of Systems
Allergies reviewed?: Yes
All Other Systems: ROS reviewed and negative except as documented in HPI and ROS
Constitutional: Reports no symptoms
EENT: Reports no symptoms
Respiratory: Reports no symptoms
Cardiac: Reports palpitations
ABD/GI: Reports no symptoms
: Reports no symptoms
Musculoskeletal: Reports no symptoms
Skin: Reports no symptoms
Neurological: Reports no symptoms
Endocrine: Reports no symptoms
Hematologic/Lymphatic: Reports no symptoms
Psychiatric: Reports no symptoms
Phy Exam
Physical Exam
Physical Exam:
Physical Exam
General: no apparent distress, not acutely ill. Well and comfortable appearing
Neck: supple. no meningeal signs. normal psoterior pharynx
Heart: Tachycardic, regular
Lungs: no acute respiratory distress. clear bilaterally
Abdomen: normal bowel sounds. not tender. no CVAT
Neuro: alert and oriented. no focal neurological deficits
Skin: no rash
Psychiatric: well kept. interactive and cooperative
Extremities: no edema. no calf tenderness. negative homans. good distal pulses
Course
Orders/Labs/Results
Orders:
Orders
08/12/24 10:45
Electrocardiogram (*1) Urgent
Reason for Study: Chest Pain
Cardiac Monitoring- Treatment ONCE
EKG- Treatment ONCE
IV Insert/Care/Rem.- Treatment PRN
O2 Therapy [RESP] Urgent
Titrate/Wean O2 to maintain O2 sat greater than (%): 90
Special Instructions: Maintain sats >/=90%
Pulse Ox/spot Check [RESP] Urgent
Quantity: 1
Special Instructions: ON ROOM AIR
08/12/24 11:02
Basic Metabolic Panel Urgent
Complete Blood Count/With Diff Urgent
TSH Urgent
Comment: DD
08/12/24 12:32
CR Chest - 2 Views Urgent
Comment:
Reason For Exam: recent pneumonia
08/12/24 12:35
Add On- LAB Urgent
Tests Added?: TSH
0.9% Sodium Chloride 1000 ml [Nss] 1,000 ml IV BOLUS
Abnormal Lab Results
08/12/24
11:02
WBC 12.7 H 10^3/uL
(4.8-10.8)
Absolute Neuts (auto) 8.6 H 10^3/uL
(1.4-6.5)
Absolute Monos (auto) 1.0 H 10^3/uL
(0.1-0.6)
Glucose 101 H mg/dl
(70-99)
08/12/24 11:02
08/12/24 11:02
Vital Signs
Initial and Last Documented VS:
Initial Vital Signs
Temp Pulse Resp BP Pulse Ox
98.1 F 110 18 165/101 98
08/12/24 10:42 08/12/24 10:42 08/12/24 10:42 08/12/24 10:42 08/12/24 10:42
Last Documented Vital Signs
Temp Pulse Resp BP Pulse Ox
98.1 F 108 12 132/94 96
08/12/24 10:42 08/12/24 12:45 08/12/24 12:45 08/12/24 11:17 08/12/24 12:45
MDM/Problems Addressed
Differential Diagnosis Includes:
A-fib with RVR, sinus tachycardia, PE, fever
MDM/Problems Addressed:
Patient presents with acute rapid heart rate and palpitations
Chronic conditions affecting care: Arrhythmia
Acute Exacerbation and/or Progression of Chronic Illness: Arrhythmia
*Radiology
Radiology exam reviewed: radiology read reviewed
*Pulse Oximetry
Patient hypoxic: no
*EKG
Interpreted by ED Provider?: Yes
Interpretation: abnormal
Comparison EKG: changes noted
Rate: tachycardiac
Rhythm: sinus
Dewar: left axis deviation
Interval: normal interval
QRS Pattern: normal QRS
Ischemia: non-specific ST changes
*Bank Operations Officer Interpretation
Rate: tachycardiac
Interpretation: abnormal
Rhythm: sinus
*Critical Care Note
Total Time (30-74mins, 75-104mins- exclusive of procedures): Not Applicable
Data Reviewed
Review of Other/Old Records Reveals: Discharge Summary (Discharge summary reviewed from the end of this past July when patient was admitted for tachycardia, fever and pneumonia and found to have a Brugada pattern on EKG)
Source: patient
Patient Management
Social determinants of health affecting care: Living situation and Strong social support
Discussion with other providers: Other (I spoke over the phone to Dr. Chung who reviewed patient's records and felt that his sinus tachycardia could be worked up as an ' ordinary sinus tachycardia'. She felt patient was a very low risk for
sudden cardiac and his appointments with cardiology can wait as scheduled)
Escalation/DeEscalation of care consider admission/obs:
Patient remains very well and comfortable appearing without any chest pain or shortness of breath. There is no history of presyncope or syncope. Patient given IV fluids and heart rate now down into the 80s within normal sinus rhythm. He has no
chest pain to suggest PE. Pneumonia is now gone on the chest x-ray. No fever.
ED Attending Note
-
Portions of this chart may have been created with voice recognition software.� Occasional wrong word or��sound alike� substitutions may have occurred due to the inherent limitations of voice recognition software.
Discharge Plan
Departure
Patient Disposition: Home (Routine Discharge)
Date of Disposition: 08/12/24
Time of Disposition: 13:49
Patient with high blood pressure during this ER visit?: Yes
Condition: Good
Covid-19: Not Applicable
Discharge Problem:
Regular sinus tachycardia
Instructions: Palpitations (DC), BLOOD PRESSURE
Prescriptions:
No Action
Eliquis 5 mg tablet
5 mg PO BID Qty: 60 0RF
diltiazem HCl 240 mg Capsule,Extended Release 24hr
240 mg PO DAILY
Patient Comments:
new prescription- took 120mg this AM
lamotrigine [Lamictal] 25 mg Tablet
25 mg PO HS
oxycodone 15 mg Tablet
15 mg PO TID
pantoprazole 40 mg Tablet,Delayed Release (Dr/Ec)
40 mg PO DAILY
lorazepam [Ativan] 1 mg Tablet
1 mg PO TID PRN (Reason: anxiety)
lisinopril 40 mg Tablet
40 mg PO DAILY
lurasidone [Latuda] 40 mg Tablet
40 mg PO QPM
rosuvastatin 10 mg Tablet
10 mg PO DAILY
cefdinir 300 mg capsule
300 mg PO BID Qty: 8 0RF
azithromycin 250 mg tablet
250 mg PO DAILY 4 Days Qty: 4 0RF
Referrals:
Roz Herrera PA [Family Provider] -
Activity Restrictions/Additional Instructions:
Given that your heart rate was very elevated this morning, it is very possible that you experienced atrial fibrillation that is now gone. Please continue to drink lots of fluids to keep yourself hydrated.
Interventions
Interventions:
*Risk Screen - Suicide Last Done: 08/12/24 10:42
*Neglect/Abuse Screening Last Done: 08/12/24 10:42
ED- Cardiac Assessment Last Done: 08/12/24 11:10
ED- Pulmonary Assessment Last Done: 08/12/24 11:10
Discharge Date and Time
Print Language: CITIZEN OF [place]
[2024-08-12] MEDS: NSS 1000 IV (12:48)
[2024-08-12 13:40] LABS: TSH 1.06 uIU/ml (0.47-4.68)
== END 2024-08-12 14:29 | disposition home or self-care (01) ==
LOC: EMR 10:40
PROVIDERS: Student in an Organized Health Care Education/Training Program; EMERGENCY PHYSICIAN Emergency Medicine; FAMILY PHYSICIAN Family Medicine
DX: R00.0 Tachycardia, unspecified (principal); I10 Essential (primary) hypertension; F41.9 Anxiety disorder, unspecified; F17.290 Nicotine dependence, other tobacco product, uncomplicated; I48.91 Unspecified atrial fibrillation; Z79.01 Long term (current) use of anticoagulants; Z87.01 Personal history of pneumonia (recurrent)
CPT/HCPCS: 99283; 96360; 71046; 80048; 84443; 85025; 93005

== ENCOUNTER 2024-12-22 06:11 | Day surgery (SDC) | payer OTHER, SELFPAY ==
[2024-12-04 10:31] VITALS: BMI 31.4
[2024-12-04 11:13] LABS: % Basophils 1.1 % (0-2); % Eosinophils 2.7 % (0-6); % Immature Granulocytes 0.4 % (0-0.5); % Lymphocytes 43.4 % (20.5-51.1); % Monocytes 9.2 % (1.7-9.3); % Neutrophils 43.2 % (42.2-75.2); Absolute Basophils 0.1 10^3/uL (0-0.2); Absolute Eosinophils 0.2 10^3/uL (0-0.7); Absolute Lymphocytes 2.5 10^3/uL (1.2-3.4); Absolute Monocytes 0.5 10^3/uL (0.1-0.6); Absolute Neutrophils 2.4 10^3/uL (1.4-6.5); Hematocrit 41.4 % (39.0-52.0); Hemoglobin 14.8 g/dL (13.0-18.0); Mean Corp Hgb Conc. 35.7 g/dL (33.0-37.0); Mean Corpuscular Hgb 29.2 pg (27.0-31.0); Mean Corpuscular Volume 81.8 fL (80.0-94.0); Mean Platelet Volume 9.8 fL (7.4-10.4); Nucleated Red Blood Cells % 0 % (-); Platelet Count 171 10^3/uL (130-400); Red Blood Cell Count 5.06 10^6/uL (4.70-6.10); Red Cell Dist. Width 12.1 % (11.5-14.5); White Blood Cell Count 5.6 10^3/uL (4.8-10.8)
[2024-12-04 11:20] LABS: INR 1.01; PT 13.6 Sec (11.4-14.6)
[2024-12-04 11:21] LABS: ALT (SGPT) 49 U/L (0-50); AST (SGOT) 39 U/L (17-59); Albumin 4.4 g/dl (3.5-5.0); Alkaline Phosphatase 78 U/L (38-126); Blood Urea Nitrogen 14 mg/dl (9-20); Calcium 9.8 mg/dl (8.4-10.2); Carbon Dioxide 29 mmol/L (22-30); Chloride 102 mmol/L (98-107); Estimated Creatinine Clearance 111 ml/min; Glucose 106 mg/dl (70-99); Magnesium 1.8 mg/dl (1.6-2.3); Potassium 4.2 mmol/L (3.5-5.1); Sodium 137 mmol/L (135-145); Total Bilirubin 0.5 mg/dl (0.2-1.3); Total Protein 7.4 g/dl (6.3-8.2); eGFR > 60.00
[2024-12-22] VITALS (14 sets, daily range): BP systolic 97–166; BP diastolic 70–112
--- NOTE | 2024-12-22 07:36 | ITS.CL.ABL ---
Vocational Teacher - Ablation
Ablation
Procedure Report:
Primary Care: Roz Herrera PA-C
Procedure Date: 12/22/2024
Patient History:
Patient is a very pleasant 49-year-old male with a past medical history significant for hypertension, anxiety, nicotine use, palpitations, dyslipidemia, Brugada pattern (spontaneous in the setting of fever without syncope, family history,
ventricular ectopy/NSVT/sustained arrhythmias), and paroxysmal symptomatic atrial fibrillation.
See H&P for complete details.
Indication:
Symptomatic paroxysmal atrial fibrillation
Arrhythmia Specific History:
Prior Medical Therapies for Rate and Rhythm Control:
[ ] Beta-chance
X Calcium channel-chance
[ ] Amiodarone
[ ] Dronederone
[ ] Sotalol
[ ] Flecainide
[ ] Dofetilide
[ ] Options limited by bradycardia
[ ] Options limited by comorbid renal disease
Prior Procedural Therapies for AF/AFL:
[ ] Cardioversion
[ ] Pulmonary Vein Isolation
[ ] Posterior Wall Isolation
[ ] Additional lines (Specify)
[ ] Surgical Kirby-MAZE or PVI (Specify)
Procedure Performed:
X AF ablation procedure (74939) -- includes LA/CS pacing, trans-septal, 3D mapping, + ICE
[ ] +IV drug (16950)
[ ] +Other Arrhythmia (45580)
X +Other AF Line/ablation (29439) - Posterior wall isolation (floor, roof, wall)
Risks and expected recovery has been explained in detail. Alternative options have been explored, and in a shared-decision making fashion we have decided that this was the most appropriate procedure.
Method
NPO status confirmed. Grounding pad applied. Defibrillator pads applied. Continuous surface ECG, pulse oximetry, and blood pressure were monitored. Procedure was performed under general anesthesia, with anesthesia services.
Both groins were clipped, prepped with Chloraprep, and draped in sterile fashion. Time out was called. Local anesthesia administered with bupivacaine. The right femoral vein was accessed for catheter placement, using ultrasound guidance (images
saved to record), micro-puncture needle/wire, and modified seldinger technique. 3 sheaths were placed. The following catheters were used:
[ ] Tacticath SE (D/F Curve) ablation catheter
X Viewflex 9Fr ICE catheter
X Inquiry decapolar 6Fr diagnostic catheter
[ ] CRD Hex 6Fr
[ ] Arctic Front Advance Cryoballoon ([ ]28mm[ ]23mm)
[ ] Achieve Advance mapping catheter ([ ]15mm[ ]20mm)
X FlexCath Contour 10 Fr with PulseSelect PFA Catheter
X Advisor HD Grid Mapping Catheter, SE
[ ] [employer] AcuNav 8 Fr ICE catheter
[ ]Other: [ ]
Intracardiac ultrasound (ICE) was carefully advanced into the right atrium to guide sheath placement over a J-wire, catheter placement, guide trans-septal puncture, identify potential complications, identify anatomic structures and ensure proper
contact between ablation catheter and tissue.
Heparin was given prior to trans-septal puncture. Heparin was given to achieve and maintain a target ACT of 300-400 seconds throughout the procedure.
Trans-septal access was performed under ICE guidance. The trans-septal puncture was performed with a SafeSept wire through a Brockenbrough needle assembly through the steerable sheath. The wire was visualized as it entered the LSPV and system
advanced under ICE guidance and fluoroscopy into the LA. The Brockenbrough needle assembly, SafeSept wire and sheath dilator were removed under negative pressure. LA pressure was measured and recorded.
ICE and 3D mapping was performed to identify relevant cardiac structures. A careful 3D map was created to assess for regions of low-voltage and abnormal electrogram signals using HD grid mapping catheter and PulseSelect catheter. Additional mapping
was performed as outlined below.
Prior to ablation, glycopyrrolate was provided. PulseSelect catheter was advanced over J-wire to the ostium of each vein. Pulmonary vein isolation was performed with ostial and antral lesions in a circumferential manner. Contact was visualized via
EAM, ICE, fluoroscopy, and EGM signals. Due to the small size of the left atrium and likely overlapping lesions and potential for arrhythmic substrate, posterior wall isolation was performed by anchoring the J-wire within the pulmonary vein and
placing the PulseSelect catheter in contact with the posterior wall as visualized by aforementioned methods. Following completion of ablation lesions, a post-ablation voltage/activation map was performed in sinus rhythm. Entrance and exit block were
confirmed for each vein and the posterior wall.
Catheter and sheath were removed from the left atrium and post-ablation intracardiac echo evaluation was consistent with pre-ablation with no changes and no pericardial effusion and there is no left atrial thrombus or left ventricle thrombus seen.
Electrophysiology study was performed. Hemostasis was obtained with figure of 8 stitch for each groin and with manual pressure. Protamine was used for reversal.
Estimated Blood Loss
5 mL
Complications
None
Fluoroscopy: 9.5 minutes; 37.01 mGy; DAP 4.79
LA pressure: (pre-), 09/19/12 (post)
Baseline Intervals:
Rhythm: Sinus rhythm
WA: 188 ms
QRS: 109 ms
QT: 399 ms
QTc: 463 ms
A-A: 742 ms
R-R: 742 ms
Post-Procedure Intervals:
WA: 163 ms
QRS: 106 ms
QT: 357 ms
QTc: 433 ms
A-A: 680 ms
R-R: 680 ms
AVWB: 390 ms
AVNERP: 600/270 ms
AERP: 600/230 ms
Recommendations
- Bedrest with straight-leg precautions as ordered
- Anticipate same day discharge if patient meeting clinical metrics
- Resume home medications as indicated
- Ok to resume anticoagulation tonight if patient and groin sites stable
- PPI daily for 30 days
- Plan for follow-up in office as scheduled
Juan Lion DO, FACC
Clinical Cardiac Potato Grader
cc: Roz Herrera PA-C
[2024-12-22 08:54] LABS: ACT-LR - POC 319 Seconds (116-155)
[2024-12-22 09:12] LABS: ACT-LR - POC 337 Seconds (116-155)
[2024-12-22 09:35] LABS: ACT-LR - POC 361 Seconds (116-155)
[2024-12-22 10:00] LABS: ACT-LR - POC 376 Seconds (116-155)
[2024-12-22 10:16] LABS: ACT-LR - POC 153 Seconds (116-155)
--- NOTE | 2024-12-22 14:30 | W.PN.UPDATE ---
Update Note
Progress Note Update
Pt seen post PFA. Right groin site without ht/bleeding, non tender. OOB ambulating, urinating without difficulty. Post EKG NSR 68, anterior ST abn noted as before. Resume eliquis tonight at usual time. Followup with Dr. Lion as scheduled. Home
today if groin site/tele remain stable. Multiple questions re: procedure, recovery phase. All questions answered.
== END 2024-12-22 16:00 | disposition home or self-care (01) ==
LOC: CATH 06:11
PROVIDERS: ATTENDING PHYSICIAN Internal Medicine Cardiovascular Disease; FAMILY PHYSICIAN Family Medicine
DX: I48.0 Paroxysmal atrial fibrillation (principal); I10 Essential (primary) hypertension; E78.5 Hyperlipidemia, unspecified; K21.9 Gastro-esophageal reflux disease without esophagitis; Z72.0 Tobacco use; F31.9 Bipolar disorder, unspecified; F41.9 Anxiety disorder, unspecified; L40.9 Psoriasis, unspecified; D17.9 Benign lipomatous neoplasm, unspecified; Z79.899 Other long term (current) drug therapy; Z79.4 Long term (current) use of insulin; Z79.01 Long term (current) use of anticoagulants; Z79.891 Long term (current) use of opiate analgesic
CPT/HCPCS: C1732; C1894; C1730; C1769; C1759; C1733; C1766; 36415; 75572; 80053; 83735; 85025; 85347; 85610; 86850; 86900; 86901; 93005; 93656; 93657; Q9967

== ENCOUNTER 2025-01-15 18:25 | Emergency (ER) | payer OTHER, SELFPAY ==
[2025-01-15 18:39] VITALS: BP 138/95
[2025-01-15 19:15] LABS: % Basophils 0.9 % (0-2); % Eosinophils 1.7 % (0-6); % Monocytes 10.3 % (1.7-9.3); % Neutrophils 51.1 % (42.2-75.2); Absolute Basophils 0.1 10^3/uL (0-0.2); Absolute Eosinophils 0.1 10^3/uL (0-0.7); Absolute Lymphocytes 2.1 10^3/uL (1.2-3.4); Absolute Monocytes 0.6 10^3/uL (0.1-0.6); Hematocrit 38.1 % (39.0-52.0); Hemoglobin 13.8 g/dL (13.0-18.0); Mean Corp Hgb Conc. 36.2 g/dL (33.0-37.0); Mean Corpuscular Hgb 30.1 pg (27.0-31.0); Nucleated Red Blood Cells % 0 % (-); Platelet Count 174 10^3/uL (130-400); Red Blood Cell Count 4.59 10^6/uL (4.70-6.10); Red Cell Dist. Width 12.4 % (11.5-14.5); White Blood Cell Count 5.8 10^3/uL (4.8-10.8)
[2025-01-15 19:33] LABS: ALT (SGPT) 32 U/L (0-50); AST (SGOT) 29 U/L (17-59); Albumin 4.8 g/dl (3.5-5.0); Alkaline Phosphatase 81 U/L (38-126); Blood Urea Nitrogen 16 mg/dl (9-20); Calcium 9.2 mg/dl (8.4-10.2); Carbon Dioxide 25 mmol/L (22-30); Chloride 104 mmol/L (98-107); Glucose 100 mg/dl (70-99); Lipase 103 U/L (23-300); Potassium 4.1 mmol/L (3.5-5.1); Sodium 140 mmol/L (135-145); Total Bilirubin 0.9 mg/dl (0.2-1.3); Total Protein 7.4 g/dl (6.3-8.2); eGFR > 60.00
[2025-01-15 20:00] VITALS: BP 118/91
[2025-01-15 20:07] LABS: Urine Albumin Negative (Neg - Trace); Urine Bilirubin Negative (Negative); Urine Character Clear (Clear); Urine Color Yellow; Urine Glucose Negative (Negative); Urine Ketone Negative (Negative); Urine Leukocyte Negative (Negative); Urine Nitrite Negative (Negative); Urine Occult Blood 1+ (Negative); Urine Urobilinogen Negative (Neg - 1+); Urine pH 6.5 (5.0-9.0)
--- NOTE | 2025-01-15 20:11 | ED.GENMED ---
History of Present Illness
General
Chief Complaint: Abdominal Pain
Source: patient
Exam Limitations: none
Time Seen by Provider: 01/15/25 19:27
History of Present Illness
History of Present Illness:
Patient with 5 months of upper right abdominal pain. Pain is there every day. No nausea or vomiting. No change in bowels. No pleuritic pain. No shortness of breath. Has had some mid back pain this has been a ongoing issue for 9 months. These
pains do not necessarily happen at the same time. Pain is minimal at this time but occurs every day and is there frequently every day
Past History
Past History
ED Past Medical History: Arrthythmia, HTN and Psychiatric (anxiety)
ED Past Surgical History: Cardiac (Ablation) and Other
Social History
Tobacco: Vaping
Alcohol: Occasional
Drug: None
Personal: Other
Living: with family
Employment: Other
Family History
Family History: Other
Review of Systems
Review of Systems
All Other Systems: Not applicable
Constitutional: Denies fever or chills
Respiratory: Reports no symptoms
Cardiac: Reports no symptoms
Phy Exam
Physical Exam
Physical Exam:
GENERAL: Alert and oriented in no apparent distress
EYE: Orbits normal.
NECK: Supple, no significant adenopathy.
ENT: Pharynx without erythema
CARDIAC: Regular rate and rhythm without any obvious murmurs.
LUNGS: Clear breath sounds,normal
ABDOMEN: Soft, mild right upper quadrant tenderness. No rebound or guarding no mass or hernia. No chest wall tenderness. No CVA tenderness
NEUROLOGICAL: Alert and oriented , grossly non-focal
SKIN: Warm and dry, no rash or lesion, no discoloration, skin intact.
MUSCULOSKELETAL: No edema,no deformity.Good color
PSYCH: Normal and appropriate interaction.
Course
Orders/Labs/Results
Orders:
Orders
01/15/25 18:27
ECG [Electrocardiogram (*1)] Urgent
Reason for Study: Chest Pain
Other Reason for Exam: abdominal and chest pain
01/15/25 18:28
EKG- Treatment ONCE
01/15/25 18:57
Complete Blood Count/With Diff Urgent
Comprehensive Metabolic Panel Urgent
Lipase Urgent
01/15/25 19:52
CT Abd/Pel (IV only)-DH only Urgent
Comment:
Reason For Exam: Right-sided abdominal pain
US Abdomen Limited Urgent
Comment:
Reason For Exam: Right upper quadrant abdominal pain
01/15/25 20:00
Urinalysis Reflex To Culture Urgent
Date Specimen was Collected: 01/15/25
Time Specimen was Collected: 19:53
Urine Microscopic Reflex Cult Urgent
Abnormal Lab Results
01/15/25 01/15/25
18:57 20:00
RBC 4.59 L 10^6/uL
(4.70-6.10)
Hct 38.1 L %
(39.0-52.0)
Monocytes % 10.3 H %
(1.7-9.3)
Glucose 100 H mg/dl
(70-99)
Ur Occult Blood Reflex 1+ A
(Negative)
Urine RBC 3-6 A /HPF
(0-2)
Urine Bacteria (Reflex) Few A
(Negative)
01/15/25 18:57
01/15/25 18:57
Vital Signs
Initial and Last Documented VS:
Initial Vital Signs
Temp Pulse Resp BP Pulse Ox
98.4 F 63 20 138/95 98
01/15/25 18:39 01/15/25 18:39 01/15/25 18:39 01/15/25 18:39 01/15/25 18:39
Last Documented Vital Signs
Temp Pulse Resp BP Pulse Ox
98.4 F 74 16 118/91 98
01/15/25 18:39 01/15/25 20:00 01/15/25 20:00 01/15/25 20:00 01/15/25 20:00
MDM/Problems Addressed
Differential Diagnosis Includes:
Location of pain would make me suspicious for gallbladder. However essentially continuous for 5 months. Nonsurgical abdomen. No rash. Doubt orthopedic issue. Highly doubt pulmonary emboli. Workup in progress
*Radiology
Radiology exam reviewed: radiology read reviewed (Right adrenal lesion myolipoma. Consistent with ultrasound and CT)
*Pulse Oximetry
Patient hypoxic: no
Data Reviewed
Review of Other/Old Records Reveals: Labs, Records and Testing
Update Note
Update Note:
No acute serious explanation for patient's symptoms. In theory it is possible this adrenal mass is causing his symptoms. It is right side and would radiate to the back. Recommend that he follow-up with urology and primary care. Copy of reports
given to patient
ED Attending Note
-
Portions of this chart may have been created with voice recognition software.� Occasional wrong word or��sound alike� substitutions may have occurred due to the inherent limitations of voice recognition software.
Discharge Plan
Departure
Patient Disposition: Home (Routine Discharge)
Date of Disposition: 01/15/25
Time of Disposition: 22:46
Prescriptions:
No Action
Eliquis 5 mg tablet
5 mg PO BID Qty: 60 0RF
diltiazem HCl 240 mg Capsule,Extended Release 24hr
240 mg PO DAILY
oxycodone 15 mg Tablet
10 mg PO TID
pantoprazole 40 mg Tablet,Delayed Release (Dr/Ec)
40 mg PO DAILY
lorazepam [Ativan] 1 mg Tablet
1 mg PO TID PRN (Reason: anxiety)
lisinopril 40 mg Tablet
40 mg PO DAILY
lurasidone [Latuda] 40 mg Tablet
40 mg PO HS
rosuvastatin 10 mg Tablet
10 mg PO DAILY
Humira 40 mg/0.8 mL Syringe Kit
40 mg SC Q2W
cholecalciferol (vitamin D3) [Vitamin D3] 125 mcg (5,000 unit) Tablet
125 mcg PO DAILY
ifjxr-9p-utp-epa-fish oil 350-400 mg Capsule
1 cap PO BID
albuterol sulfate 90 mcg/actuation Hfa Aerosol Inhaler
2 puff INHALATION Q6H PRN (Reason: wheezing/dyspnea)
Referrals:
Juan Lion DO [Family Provider] -
Interventions
Interventions:
*Risk Screen - Suicide Last Done: 01/15/25 18:39
*General Assessment Last Done: 01/15/25 20:03
*ED- Fall Risk Assessment Last Done: 01/15/25 20:03
*ED COVID-19 Vaccine History Last Done: 01/15/25 20:03
[facility] Assessment Last Done: 01/15/25 20:03
Discharge Date and Time
Print Language: ALGERIAN
[2025-01-15 20:22] LABS: Urine Bacteria Few (Negative); Urine Squamous Cell 0-2 /LPF (Few); Urine White Cell 0-2 /HPF (0-5)
[2025-01-15 22:00] VITALS: BP 121/76
== END 2025-01-15 22:51 | disposition home or self-care (01) ==
LOC: EMR 18:25
PROVIDERS: Emergency Medicine; EMERGENCY PHYSICIAN Emergency Medicine; FAMILY PHYSICIAN Internal Medicine Cardiovascular Disease
DX: R10.11 Right upper quadrant pain (principal); E27.9 Disorder of adrenal gland, unspecified; I10 Essential (primary) hypertension; F17.290 Nicotine dependence, other tobacco product, uncomplicated
CPT/HCPCS: 99284; 74177; 76705; 80053; 81003; 81015; 83690; 85025; 93005; Q9967

== ENCOUNTER → 2025-07-10 10:38 | Outpatient (REF) | payer OTHER, SELFPAY | LOC: RAD 10:38 | PROVIDERS: ATTENDING PHYSICIAN Urology | DX: D17.79 Benign lipomatous neoplasm of other sites (principal) | CPT/HCPCS: 74170; Q9967 ==

== ENCOUNTER 2025-09-18 10:35 | Emergency (ER) | payer OTHER, SELFPAY ==
[2025-09-18 10:44] VITALS: BP 134/85
[2025-09-18 11:40] LABS: Hematocrit 40.2 % (39.0-52.0); Hemoglobin 14.4 g/dL (13.0-18.0); Mean Corp Hgb Conc. 35.8 g/dL (33.0-37.0); Mean Corpuscular Volume 82.5 fL (80.0-94.0); Nucleated Red Blood Cells % 0 % (-); Platelet Count 181 10^3/uL (130-400); Red Cell Dist. Width 13.0 % (11.5-14.5)
[2025-09-18 11:47] LABS: ALT (SGPT) 27 U/L (0-50); AST (SGOT) 28 U/L (17-59); Albumin 4.6 g/dl (3.5-5.0); Alkaline Phosphatase 62 U/L (38-126); Blood Urea Nitrogen 16 mg/dl (9-20); Calcium 9.6 mg/dl (8.4-10.2); Carbon Dioxide 30 mmol/L (22-30); Chloride 100 mmol/L (98-107); Glucose 92 mg/dl (70-99); Lipase 115 U/L (23-300); Potassium 4.4 mmol/L (3.5-5.1); Sodium 136 mmol/L (135-145); Total Protein 7.9 g/dl (6.3-8.2); eGFR > 60.00
[2025-09-18 11:50] LABS: Urine Character Clear (Clear)
[2025-09-18 12:24] LABS: Urine Squamous Cell 0-2 /LPF (Few)
[2025-09-18] MEDS: TORADOL 30 MG IV (13:22)
--- NOTE | 2025-09-18 13:27 | ED.GENMED ---
History of Present Illness
General
Chief Complaint: Abdominal Symptoms
Source: patient
Time Seen by Provider: 09/18/25 13:13
History of Present Illness
History of Present Illness:
50-year-old male with past medical history of atrial fibrillation (currently not on any anticoagulants), hypertension, adrenal myelolipoma and bipolar/PTSD presenting to the ER for abdominal pain that has been ongoing for 3 weeks, initially more in
the right lower quadrant but over the last week or so it is much more generalized, dull gnawing sensation, worse when laying flat, somewhat relieved when sitting upright. Patient does note some slightly diminished p.o. intake to solids but not
liquids. No fevers, chills, rigors. He notes that when he urinated this morning he it 'did not feel totally normal'. Did not take anything for symptoms prior to arrival. No other concerns presently.
Past History
Past History
ED Past Medical History: Arrthythmia, HTN and Psychiatric (anxiety)
ED Past Surgical History: Cardiac (Ablation) and Other
Social History
Tobacco: Vaping
Alcohol: Occasional
Drug: None
Personal: Other
Living: with family
Employment: Other
Family History
Family History: Other
Review of Systems
Review of Systems
All Other Systems: ROS reviewed and negative except as documented in HPI and ROS
Phy Exam
Physical Exam
Physical Exam:
GENERAL: Alert , in no apparent distress
EYE: clear conjunctiva b/l
HEAD: NCAT
ENT: o/p clr, mmm.
CARDIAC: Regular rate and rhythm .
LUNGS: Clear breath sounds bilaterally, no acute respiratory distress, no wheezes/rales/rhonchi
ABDOMEN: Soft, without focal tenderness, no r/g, no cvat
NEUROLOGICAL: Alert and oriented
SKIN: Warm and dry, skin intact.
MUSCULOSKELETAL: No edema, well perfused.
PSYCH: Normal and appropriate interaction.
Scores
Heart Failure Risk
Heart Failure Risk Score: Not Applicable
Heart Score for Chest Pain Patients
STEMI patient?: Not applicable
Withdrawal Assessment of Alcohol
Withdrawal Assessment Completed?: Not applicable
Course
Orders/Labs/Results
Orders:
Orders
09/18/25 10:48
CT Abd/Pel (IV only)-DH only Urgent
Comment:
Reason For Exam: low abd pain, adrenal mass history
09/18/25 10:55
Complete Blood Count/With Diff Urgent
Comprehensive Metabolic Panel Urgent
Lipase Urgent
Urinalysis Reflex To Culture Urgent
Date Specimen was Collected: 09/18/25
Time Specimen was Collected: 10:46
Urine Microscopic Reflex Cult Urgent
09/18/25 13:18
Ketorolac [Toradol] 30 mg IV NOW STA
Abnormal Lab Results
09/18/25
10:55
Ur Occult Blood Reflex 1+ A
(Negative)
Urine RBC 3-6 A /HPF
(0-2)
Urine Bacteria (Reflex) Few A
(Negative)
09/18/25 10:55
09/18/25 10:55
Vital Signs
Initial and Last Documented VS:
Initial Vital Signs
Temp Pulse Resp BP Pulse Ox
97 F 75 17 134/85 99
09/18/25 10:44 09/18/25 10:44 09/18/25 10:44 09/18/25 10:44 09/18/25 10:44
Last Documented Vital Signs
Temp Pulse Resp BP Pulse Ox
97 F 78 18 138/74 99
09/18/25 10:44 09/18/25 14:29 09/18/25 14:29 09/18/25 14:29 09/18/25 14:29
MDM/Problems Addressed
Differential Diagnosis Includes:
appendicitis
diverticulitis
colitis
UTI
cholecystitis/cholelithiasis
MDM/Problems Addressed:
50-year-old male presenting to the ER for evaluation of abdominal pain x 3 weeks, initially right lower quadrant, now generalized. Nonspecific urinary symptoms today. Hemodynamically stable. Labs initiated on arrival which are all reassuring,
urinalysis without any sign of infection. Will check CT imaging. Toradol for pain. Disposition pending.
*Radiology
Radiology exam reviewed: radiology read reviewed
*Pulse Oximetry
SaO2: 99
Oxygen Mode of Delivery: Room air
Patient hypoxic: no
*Critical Care Note
Total Time (30-74mins, 75-104mins- exclusive of procedures): Not Applicable
Patient Management
Escalation/DeEscalation of care consider admission/obs:
CT scan shows no acute intra-abdominal processes, stable adrenal myelo lipoma. At this time no clear etiology for patient's abdominal pain however I do not have concern for any emergent process. Advised patient follow-up with primary care
provider. Discussed return precautions to the ER. Stable for discharge home.
ED Attending Note
-
Portions of this chart may have been created with voice recognition software.� Occasional wrong word or��sound alike� substitutions may have occurred due to the inherent limitations of voice recognition software.
Discharge Plan
Departure
Patient Disposition: Home (Routine Discharge)
Date of Disposition: 09/18/25
Time of Disposition: 14:10
Patient with high blood pressure during this ER visit?: No
Discharge Problem:
Abdominal pain
Instructions: Abdominal Pain
Prescriptions:
No Action
Eliquis 5 mg tablet
5 mg PO BID Qty: 60 0RF
diltiazem HCl 240 mg Capsule,Extended Release 24hr
240 mg PO DAILY
oxycodone 15 mg Tablet
10 mg PO TID
pantoprazole 40 mg Tablet,Delayed Release (Dr/Ec)
40 mg PO DAILY
lorazepam [Ativan] 1 mg Tablet
1 mg PO TID PRN (Reason: anxiety)
lisinopril 40 mg Tablet
40 mg PO DAILY
lurasidone [Latuda] 40 mg Tablet
40 mg PO HS
rosuvastatin 10 mg Tablet
10 mg PO DAILY
Humira 40 mg/0.8 mL Syringe Kit
40 mg SC Q2W
cholecalciferol (vitamin D3) [Vitamin D3] 125 mcg (5,000 unit) Tablet
125 mcg PO DAILY
osmdp-9i-cir-epa-fish oil 350-400 mg Capsule
1 cap PO BID
albuterol sulfate 90 mcg/actuation Hfa Aerosol Inhaler
2 puff INHALATION Q6H PRN (Reason: wheezing/dyspnea)
Interventions
Interventions:
*General Assessment Last Done: 09/18/25 10:45
*Neglect/Abuse Screening Last Done: 09/18/25 10:45
*ED COVID-19 Vaccine History Last Done: 09/18/25 10:45
*ED Influenza Vaccine History Last Done: 09/18/25 10:45
*Risk Screen - Suicide ([facility]-SSRS) Last Done: 09/18/25 10:45
*Nursing Disposition Last Done: 09/18/25 14:20
[facility]-Jqvj[facility]-Ybhreplapg Assessment Last Done: 09/18/25 13:25
Discharge Date and Time
Discharge Date/Time: 09/18/25 14:29
Print Language: KITTITIAN
[2025-09-18 14:29] VITALS: BP 138/74
== END 2025-09-18 14:29 | disposition home or self-care (01) ==
LOC: EMR 10:35
PROVIDERS: Emergency Medicine; EMERGENCY PHYSICIAN Emergency Medicine; FAMILY PHYSICIAN Family Medicine
DX: R10.84 Generalized abdominal pain (principal); I10 Essential (primary) hypertension; I48.91 Unspecified atrial fibrillation; D17.79 Benign lipomatous neoplasm of other sites; F17.290 Nicotine dependence, other tobacco product, uncomplicated
CPT/HCPCS: 96374; 99284; 74177; 80053; 81003; 81015; 83690; 85025; Q9967